=== PATIENT | female | born 1940 | race Caucasian/White ===

== ENCOUNTER 2019-01-04 21:24 | Emergency (ER) | payer MEDICARE, BC ==
--- NOTE | 2019-01-04 22:29 | EDM.PDOC ---
ED HPI GENERAL MEDICAL PROBLEM - General Time Seen by Provider: 01/04/19 21:24 Source of Information: Reports: Patient, Family History Limitations: Reports: No Limitations - History of Present Illness INITIAL COMMENTS - FREE TEXT/NARRATIVE: 78 y.o.w.f with a H/O UC came to the ed because abd. pain. Pt had a "good BM" this morning. At about 10 am, pt noticed pain ant her abdomen. Pt was seen by her PMD who prescribed her Levofloxacin for her Pneumonia. No trauma, no N/V. Last food intake this am. No blood in stool, no N/V or any other acute med issues. BP 136/63 RR 18 Pulse ox 98% on RA Temp 36.8 Onset Date: 01/04/19 Onset Time: 09:00 Duration: Hour(s):, Intermittent Location: Reports: Abdomen (gen abdomen) Quality: Reports: Dull Severity: Mild Improves with: Reports: Other Worsens with: Reports: Other Context: Reports: Other Associated Symptoms: Reports: No Other Symptoms abd Pain Score (Numeric/FACES): 10 - Related Data Allergies Allergy/AdvReac Type Severity Reaction Status Date / Time Penicillins Allergy Severe Shortness Verified 01/04/19 21:36 of Breath aspirin Allergy Shortness Verified 01/04/19 21:36 of Breath Home Meds: Home Meds Albuterol [Proventil Neb Soln] 1 ampule INH QID PRN 04/06/18 [History] Albuterol [Ventolin HFA] 2 inhalation INH QID PRN 04/06/18 [History] Budesonide/Formoterol [Symbicort 160-4.5 MCG] 2 inh INH BID 04/06/18 [History] Montelukast [Singulair] 10 mg PO DAILY 04/06/18 [History] levETIRAcetam [Levetiracetam] 250 mg PO DAILY 04/06/18 [History] Gabapentin [Neurontin] 100 mg PO DAILY 01/04/19 [History] Levofloxacin 500 mg PO DAILY 01/04/19 [History] dexAMETHasone [Dexamethasone] 2 mg PO BID 01/04/19 [History] fentaNYL [Duragesic] 12 mcg TOP ASDIRECTED 01/04/19 [History] oxyCODONE 5 mg PO Q4HR PRN 01/04/19 [History] Past Medical History HEENT History: Reports: Impaired Vision Respiratory History: Reports: Asthma, SOB Neurological History: Reports: Seizure - Past Surgical History HEENT Surgical History: Reports: None GI Surgical History: Reports: Colostomy Neurological Surgical History: Reports: None Social & Family History - Family History Family Medical History: Noncontributory - Caffeine Use Caffeine Use: Reports: Coffee ED ROS GENERAL - Review of Systems Review Of Systems: See Below Constitutional: Reports: No Symptoms HEENT: Reports: No Symptoms Respiratory: Reports: No Symptoms Cardiovascular: Reports: No Symptoms Endocrine: Reports: No Symptoms GI/Abdominal: Reports: Abdominal Pain (generalized) : Reports: No Symptoms Musculoskeletal: Reports: No Symptoms Skin: Reports: No Symptoms Neurological: Reports: No Symptoms Psychiatric: Reports: No Symptoms Hematologic/Lymphatic: Reports: No Symptoms ED EXAM, GI/ABD - Physical Exam Exam: See Below Exam Limited By: No Limitations General Appearance: Alert, WD/WN, Mild Distress Eyes: Bilateral: Normal Appearance Ears: Normal External Exam Nose: Normal Inspection Throat/Mouth: Normal Inspection Head: Atraumatic Neck: Normal Inspection Respiratory/Chest: No Respiratory Distress Cardiovascular: Normal Peripheral Pulses GI/Abdominal Exam: Tender (general tenderness. Colostomy bag has no stool ) (Female) Exam: Deferred Rectal (Female) Exam: Deferred Back Exam: Normal Inspection Extremities: Normal Inspection, Normal Range of Motion Neurological: Alert, Oriented, CN II-XII Intact, Normal Cognition, Normal Gait Psychiatric: Normal Affect, Normal Mood Skin Exam: Warm, Dry, Intact, Normal Color, No Rash Lymphatic: No Adenopathy Course - Vital Signs Text/Narrative:: 78 y.o.w.f with a H/O UC came to the ed because abd. pain. Pt had a "good BM" this morning. At about 10 am, pt noticed pain ant her abdomen. Pt was seen by her PMD who prescribed her Levofloxacin for her Pneumonia. No trauma, no N/V. Last food intake this am. No blood in stool, no N/V or any other acute med issues. BP 136/63 RR 18 Pulse ox 98% on RA Temp 36.8 PE: WNWD W F with a colostomy bag in place. Imaging: Abd flat upright: NAD as per RAD Labs: CBC and BMP nl Impression: Abd. pain, cause not determined. Tx: Prune choose Reexam: Pt passed stool and felt better, requesting to be discharged. Plan: D/C with instructions Last Recorded V/S: Last Vital Signs Temp 36.6 C 01/04/19 21:24 Pulse 90 01/04/19 23:08 Resp 18 01/04/19 23:08 BP 141/75 H 01/04/19 23:08 Pulse Ox 99 01/04/19 23:08 - Orders/Labs/Meds Orders: Active Orders 24 hr Category Date Time Status Abdomen 2V AP Flat Upright [CR] Stat Exams 01/04/19 21:46 Taken CULTURE URINE [RM] Stat Lab 01/04/19 22:22 Received Labs: Laboratory Tests 01/04/19 01/04/19 01/04/19 Range/Units 21:52 21:52 22:22 WBC 8.7 (4.5-12.0) X10-3/uL RBC 4.81 (3.23-5.20) x10(6)uL Hgb 14.5 (11.5-15.5) g/dL Hct 43.3 (30.0-51.3) % MCV 90.0 (80-96) fL MCH 30.2 (27.7-33.6) pg MCHC 33.5 (32.2-35.4) g/dL RDW 13.6 (11.5-15.5) % Plt Count 215 (125-369) X10(3)uL MPV 6.8 L (7.4-10.4) fL Neut % (Auto) 73.2 (46-82) % Lymph % (Auto) 19.7 (13-37) % [place] % (Auto) 6.8 (4-12) % Eos % (Auto) 0 L (1.0-5.0) % Baso % (Auto) 0 (0-2) % Neut # (Auto) 6.4 (1.6-8.3) # Lymph # (Auto) 1.7 (0.6-5.0) # [place] # (Auto) 0.6 (0.0-1.3) # Eos # (Auto) 0.0 (0.0-0.8) # Baso # (Auto) 0.0 (0.0-0.2) # Sodium 140 (135-145) mmol/L Potassium 3.8 (3.5-5.3) mmol/L Chloride 103 (100-110) mmol/L Carbon Dioxide 28 (21-32) mmol/L BUN 12 (7-18) mg/dL Creatinine 0.9 (0.55-1.02) mg/dL Est Cr Clr Drug Dosing 39.43 mL/min Estimated GFR (MDRD) > 60 (>60) BUN/Creatinine Ratio 13.3 (9-20) Glucose 101 (80-116) mg/dL Calcium 9.4 (8.6-10.2) mg/dL Urine Color Yellow (YELLOW) Urine Appearance Clear (CLEAR) Urine pH 6.0 (5.0-6.5) Ur Specific [place] 1.015 (1.010-1.025) Urine Protein Negative (NEGATIVE) mg/dL Urine Glucose (UA) Normal (NORMAL) mg/dL Urine Ketones Negative (NEGATIVE) mg/dL Urine Occult Blood Negative (NEGATIVE) Urine Nitrite Negative (NEGATIVE) Urine Bilirubin Negative (NEGATIVE) Urine Urobilinogen Normal (NEGATIVE) mg/dL Ur Leukocyte Esterase Small H (NEGATIVE) Urine RBC 0-5 (0-5) Urine WBC 5-10 H (0-5) Ur Squamous Epith Cells Few H (NS,R,O) Urine Bacteria Few H (NS) Urine Mucus Few H (NS) Departure - Departure Time of Disposition: 23:10 Disposition: Home, Self-Care 01 Condition: Good Clinical Impression: Abdominal pain in female, UTI (urinary tract infection) - Discharge Information Instructions: Abdominal Pain, Adult Referrals: Akil Wallis MD [Primary Care Provider] - Forms: ED Department Discharge Additional Instructions: please take tylenol for pain, cont you current meds. please f/u with your PMD, come back if your symptoms get worse acutely - My Orders Last 24 Hours: My Active Orders 01/04/19 21:46 Abdomen 2V AP Flat Upright [CR] Stat 01/04/19 22:22 CULTURE URINE [RM] Stat - Assessment/Plan Last 24 Hours: My Active Orders 01/04/19 21:46 Abdomen 2V AP Flat Upright [CR] Stat 01/04/19 22:22 CULTURE URINE [RM] Stat
== END 2019-01-04 23:18 | disposition home or self-care (01) ==
LOC: FB.ED 21:24
DX: N39.0 Urinary tract infection, site not specified (principal); J45.909 Unspecified asthma, uncomplicated; Z88.0 Allergy status to penicillin; Z88.8 Allergy status to other drugs, medicaments and biological substances; Z79.899 Other long term (current) drug therapy
CPT/HCPCS: 36415; 74019; 80048; 81001; 85025; 87086; 99282; 99283-25

== ENCOUNTER 2021-03-15 11:13 | Observation (INO) | payer MEDICARE, BC ==
[2021-03-15] MEDS ORDERED: Sodium Chloride 0.9% 10 ML Syringe FLUSH PRN (11:46)
[2021-03-15] MEDS ORDERED: Sodium Chloride 0.9% 1,000 ML IV SCH (12:00)
--- NOTE | 2021-03-15 12:38 | EDM.PDOC ---
ED HPI GENERAL MEDICAL PROBLEM - General Chief Complaint: General Stated Complaint: WEAKNESS Time Seen by Provider: 03/15/21 11:25 Source of Information: Reports: Patient History Limitations: Reports: No Limitations - History of Present Illness INITIAL COMMENTS - FREE TEXT/NARRATIVE: Patient presented to the ED because of her stoma licking and just want it to be checked. It looks raw but is not tender, no pus discharge, There is no abdominal pain, nausea, vomiting. She however feels weak or her legs.Her stool is usually soft due to her ulcerative colitis. Denies having any urinary symptoms. general Pain Score (Numeric/FACES): 3 - Related Data Allergies Allergy/AdvReac Type Severity Reaction Status Date / Time Penicillins Allergy Severe Shortness Verified 03/15/21 11:55 of Breath aspirin Allergy Shortness Verified 03/15/21 11:55 of Breath carbamazepine Allergy Cannot Verified 03/15/21 13:19 Remember cephalexin [From Keflex] Allergy Wheezing Verified 03/15/21 13:19 doxycycline Allergy Hives Verified 03/15/21 13:19 erythromycin base Allergy Hives Verified 03/15/21 13:19 ibuprofen Allergy Difficulty Verified 03/15/21 13:19 Breathing latex Allergy Hives Verified 03/15/21 13:19 naproxen [From Naprosyn] Allergy Wheezing Verified 03/15/21 13:19 oxcarbazepine Allergy Hives Verified 03/15/21 13:19 Sulfa (Sulfonamide Allergy Wheezing Verified 03/15/21 13:19 Antibiotics) chocolate Allergy Other Uncoded 03/15/21 13:19 coffee flavor Allergy Other Uncoded 03/15/21 13:19 audrey canina extract (fruit c) Allergy Shortness Uncoded 03/15/21 13:19 of Breath Home Meds: Home Meds Albuterol [Proventil Neb Soln] 1 ampule INH QID PRN 04/06/18 [History] Albuterol [Ventolin HFA] 2 puff INH QID PRN 04/06/18 [History] Montelukast [Singulair] 10 mg PO DAILY 04/06/18 [History] levETIRAcetam [Levetiracetam] 250 mg PO BID 04/06/18 [History] Acetaminophen [Tylenol Arthritis] 650 mg PO ASDIRECTED PRN 03/15/21 [History] Beta-Carotene(A) w/C & E/Min [Prosight] 1 tab PO DAILY 03/15/21 [History] Budesonide/Formoterol [Symbicort 160-4.5 MCG] 1 - 2 puff INH BID 03/15/21 [History] Calcium Carbonate/Vitamin D3 [Calcium 600-Vit D3 200 Tablet] 1 tab PO BIDMEALS 03/15/21 [History] Cholecalciferol (Vitamin D3) [Vitamin D3] 400 unit PO BID 03/15/21 [History] Cyanocobalamin (Vitamin B12) [Vitamin B12] 1 tab PO DAILY 03/15/21 [History] Magnesium Gluconate 500 mg PO DAILY 03/15/21 [History] Multivitamin 1 tab PO DAILY 03/15/21 [History] Past Medical History HEENT History: Reports: Impaired Vision Respiratory History: Reports: Asthma, SOB Gastrointestinal History: Reports: Other (See Below) Other Gastrointestinal History: ulcertive colitis, ileostomy placed in the "80's" Neurological History: Reports: Seizure - Past Surgical History HEENT Surgical History: Reports: None GI Surgical History: Reports: Colostomy Neurological Surgical History: Reports: None Social & Family History - Family History Family Medical History: No Pertinent Family History - Caffeine Use Caffeine Use: Reports: Coffee ED ROS GENERAL - Review of Systems Review Of Systems: See Below Constitutional: Reports: No Symptoms HEENT: Reports: No Symptoms Respiratory: Reports: No Symptoms Cardiovascular: Reports: No Symptoms Endocrine: Reports: No Symptoms GI/Abdominal: Reports: No Symptoms : Reports: No Symptoms Musculoskeletal: Reports: No Symptoms Neurological: Reports: No Symptoms Psychiatric: Reports: No Symptoms ED EXAM, GENERAL - Physical Exam Exam: See Below Exam Limited By: No Limitations General Appearance: Alert, No Apparent Distress Eye Exam: Bilateral Eye: PERRL Ears: Normal External Exam, Normal Canal Nose: Normal Inspection, Normal Mucosa, No Blood Throat/Mouth: Normal Inspection, Normal Lips, Normal Teeth Head: Atraumatic, Normocephalic Neck: Normal Inspection, Supple, Non-Tender, Full Range of Motion Respiratory/Chest: No Respiratory Distress, Lungs Clear, Normal Breath Sounds, No Accessory Muscle Use, Chest Non-Tender Cardiovascular: Normal Peripheral Pulses, Regular Rate, Rhythm, No Edema, No Gallop, No JVD, No Murmur, No Rub GI/Abdominal: Normal Bowel Sounds, Soft, Non-Tender, No Organomegaly, No Distention, No Abnormal Bruit, No Mass, Other (stoma in place and doesn't look infected) Back Exam: Normal Inspection, Full Range of Motion Extremities: Normal Inspection, Normal Range of Motion, Non-Tender, No Pedal Edema, Normal Capillary Refill Neurological: Alert, Oriented, CN II-XII Intact, Normal Cognition, Normal Gait, Normal Reflexes, No Motor/Sensory Deficits #1 Interpretation EKG Date: 03/15/21 Time: 12:03 Rhythm: NSR Rate (Beats/Min): 82 [place]: LAD-Left [place] Deviation P-Wave: Present QRS: Normal ST-T: Normal QT: Normal LA/PQ Interval: 186 Comparison: NA - No Prior EKG EKG Interpretation Comments: NSR LAE LAD Course - Vital Signs Text/Narrative:: Lab/EKG/CXR result was reviewed and discussed with patient NS 1 L bolus NS @ 100 ml/hr Last Recorded V/S: Last Vital Signs Temp 36.6 C 03/15/21 11:20 Pulse 81 03/15/21 14:28 Resp 16 03/15/21 14:28 BP 122/55 L 03/15/21 14:00 Pulse Ox 96 03/15/21 14:28 - Orders/Labs/Meds Orders: Active Orders 24 hr Category Date Time Status Patient Status [ADT] Routine ADT 03/15/21 14:53 Active Antiembolic Devices [RC] .Routine Care 03/15/21 14:54 Active Intake and Output [RC] QSHIFT Care 03/15/21 14:54 Active Oxygen Therapy [RC] PRN Care 03/15/21 14:54 Active Pulse Oximetry [RC] PRN Care 03/15/21 14:53 Active Up With Assistance [RC] ASDIRECTED Care 03/15/21 14:52 Active VTE/DVT Education [RC] Click to Edit Care 03/15/21 14:54 Active Vital Signs [RC] Q4H Care 03/15/21 14:53 Active Regular Diet [DIET] Diet 03/15/21 Dinner Ordered Chest 1V Frontal [CR] Stat Exams 03/15/21 11:43 Taken BASIC METABOLIC PANEL,BMP [CHEM] AM Lab 03/16/21 05:11 Ordered CBC WITH AUTO DIFF [HEME] AM Lab 03/16/21 05:11 Ordered CORONAVIRUS COVID-19 ERNIE [MOLEC] Stat Lab 03/15/21 14:45 Received TROPONIN I [CHEM] Stat Lab 03/15/21 20:00 Ordered Ondansetron [Zofran] Med 03/15/21 15:00 Active 4 mg IVPUSH Q4H PRN Sodium Chloride 0.9% [Normal Saline] 1,000 ml Med 03/15/21 12:00 Active IV ASDIRECTED Sodium Chloride 0.9% [Normal Saline] 1,000 ml Med 03/15/21 15:00 Active IV ASDIRECTED Sodium Chloride 0.9% [Saline Flush] Med 03/15/21 11:46 Active 10 ml FLUSH ASDIRECTED PRN DVT/VTE Prophylaxis Reflex [OM.PC] Per Unit Routine Oth 03/15/21 14:53 Ordered Saline Lock Insert [OM.PC] Routine Oth 03/15/21 11:46 Ordered Sequential Compression Device [OM.PC] Routine Oth 03/15/21 14:52 Ordered Resuscitation Status Routine Resus Stat 03/15/21 14:52 Ordered EKG 12 Lead [EK] Routine Ther 03/15/21 11:43 Ordered Medication Orders Acetaminophen (Acetaminophen 650 Mg Tab.Er) 650 mg PO ASDIRECTED PRN PRN Reason: Headache Albuterol (Albuterol 8 Gm Inhaler) gm INH QID PRN PRN Reason: Dyspnea Enoxaparin Sodium (Enoxaparin 60 Mg/0.6 Ml Syringe) 60 mg SUBCUT Q24H LAMIN Sodium Chloride (Normal Saline) 1,000 mls @ 500 mls/hr IV ASDIRECTED [facility] Last Admin: 03/15/21 12:19 Dose: 500 mls/hr Documented by: FRIEAUG Sodium Chloride (Normal Saline) 1,000 mls @ 100 mls/hr IV ASDIRECTED [facility] Levetiracetam (Levetiracetam 250 Mg Tab) 250 mg PO BID [facility] Montelukast Sodium (Montelukast 10 Mg Tab) 10 mg PO DAILY [facility] Multivitamins/Minerals (Beta-Carotene (Vitamin A) W/Vitamin C & E Plus Minerals Tab) 1 tab PO DAILY [facility] Non-Formulary Medication (Albuterol [Proventil Neb Soln]) 1 ampule INH QID PRN PRN Reason: Dyspnea Non-Formulary Medication (Budesonide/Formoterol [Symbicort 160-4.5 Mcg]) 1 puff INH BID LAMIN Non-Formulary Medication (Calcium Carbonate/Vitamin D3 [Calcium 600-Vit D3 200 Tablet]) 1 tab PO BIDMEALS LAMIN Non-Formulary Medication (Cholecalciferol (Vitamin D3) [Vitamin D3]) 400 unit PO BID LAMIN Non-Formulary Medication (Magnesium Gluconate [Magnesium Gluconate]) 500 mg PO DAILY [facility]IN Non-Formulary Medication (Multivitamin [Multivitamin]) 1 tab PO DAILY [facility] Ondansetron HCl (Ondansetron 4 Mg/2 Ml Sdv) 4 mg IVPUSH Q4H PRN PRN Reason: nausea/vomiting Sodium Chloride (Sodium Chloride 0.9% 10 Ml Syringe) 10 ml FLUSH ASDIRECTED PRN PRN Reason: Keep Vein Open Last Admin: 03/15/21 12:19 Dose: 10 ml Documented by: FERN Labs: Laboratory Tests 03/15/21 03/15/21 03/15/21 Range/Units 12:13 12:13 12:13 WBC 9.7 (3.0-10.3) x10-3/uL RBC 4.63 (3.60-5.20) x10(6)uL Hgb 14.6 (11.4-15.5) g/dL Hct 43.0 (34.2-48.2) % MCV 92.8 (76.7-100.5) fL MCH 31.6 (23.9-33.9) pg MCHC 34.0 (31.9-34.8) g/dL RDW 13.0 (12.3-16.5) % Plt Count 213 (151-488) x10(3)uL MPV 7.5 (7.1-12.4) fL Neut % (Auto) 81.9 H (30.8-76.2) % Lymph % (Auto) 11.0 L (18.4-52.1) % [place] % (Auto) 6.3 (4.4-15.7) % Eos % (Auto) 0.5 L (0.6-8.1) % Baso % (Auto) 0.3 (0.2-1.5) % Neut # (Auto) 7.9 H (1.5-6.3) x10-3/uL Lymph # (Auto) 1.1 (1.0-4.4) x10-3/uL [place] # (Auto) 0.6 (0.3-1.0) x10-3/uL Eos # (Auto) 0.1 (0.0-0.8) x10-3/uL Baso # (Auto) 0.0 (0.0-0.1) x10-3/uL Sodium 143 (135-145) mmol/L Potassium 3.9 (3.5-5.3) mmol/L Chloride 104 (100-110) mmol/L Carbon Dioxide 29 (21-32) mmol/L BUN 21 H (7-18) mg/dL Creatinine 0.9 (0.55-1.02) mg/dL Est Cr Clr Drug Dosing TNP Estimated GFR (MDRD) 60 (>60) BUN/Creatinine Ratio 23.3 H (9-20) Glucose 106 (80-116) mg/dL Calcium 9.8 (8.6-10.2) mg/dL Total Bilirubin 1.0 (0.1-1.3) mg/dL AST 34 H (5-25) IU/L ALT 28 (12-36) U/L Alkaline Phosphatase 64 (56-112) IU/L Troponin I 135.8 H* (4.0-60.3) pg/mL NT-Pro-B Natriuret Pep (<=450) pg/mL Total Protein 7.6 (6.0-8.0) g/dL Albumin 4.1 (3.2-4.6) g/dL Globulin 3.5 g/dL Albumin/Globulin Ratio 1.2 Urine Color (YELLOW) Urine Appearance (CLEAR) Urine pH (5.0-6.5) Ur Specific [place] (1.010-1.025) Urine Protein (NEGATIVE) mg/dL Urine Glucose (UA) (NORMAL) mg/dL Urine Ketones (NEGATIVE) mg/dL Urine Occult Blood (NEGATIVE) Urine Nitrite (NEGATIVE) Urine Bilirubin (NEGATIVE) Urine Urobilinogen (NEGATIVE) mg/dL Ur Leukocyte Esterase (NEGATIVE) Urine RBC (0-5) Urine WBC (0-5) Ur Squamous Epith Cells (NS,R,O) Urine Bacteria (NS) 03/15/21 03/15/21 Range/Units 14:00 14:15 WBC (3.0-10.3) x10-3/uL RBC (3.60-5.20) x10(6)uL Hgb (11.4-15.5) g/dL Hct (34.2-48.2) % MCV (76.7-100.5) fL MCH (23.9-33.9) pg MCHC (31.9-34.8) g/dL RDW (12.3-16.5) % Plt Count (151-488) x10(3)uL MPV (7.1-12.4) fL Neut % (Auto) (30.8-76.2) % Lymph % (Auto) (18.4-52.1) % [place] % (Auto) (4.4-15.7) % Eos % (Auto) (0.6-8.1) % Baso % (Auto) (0.2-1.5) % Neut # (Auto) (1.5-6.3) x10-3/uL Lymph # (Auto) (1.0-4.4) x10-3/uL [place] # (Auto) (0.3-1.0) x10-3/uL Eos # (Auto) (0.0-0.8) x10-3/uL Baso # (Auto) (0.0-0.1) x10-3/uL Sodium (135-145) mmol/L Potassium (3.5-5.3) mmol/L Chloride (100-110) mmol/L Carbon Dioxide (21-32) mmol/L BUN (7-18) mg/dL Creatinine (0.55-1.02) mg/dL Est Cr Clr Drug Dosing Estimated GFR (MDRD) (>60) BUN/Creatinine Ratio (9-20) Glucose (80-116) mg/dL Calcium (8.6-10.2) mg/dL Total Bilirubin (0.1-1.3) mg/dL AST (5-25) IU/L ALT (12-36) U/L Alkaline Phosphatase (56-112) IU/L Troponin I 117.5 H* (4.0-60.3) pg/mL NT-Pro-B Natriuret Pep 185 (<=450) pg/mL Total Protein (6.0-8.0) g/dL Albumin (3.2-4.6) g/dL Globulin g/dL Albumin/Globulin Ratio Urine Color Yellow (YELLOW) Urine Appearance Clear (CLEAR) Urine pH 5.0 (5.0-6.5) Ur Specific [place] 1.020 (1.010-1.025) Urine Protein Negative (NEGATIVE) mg/dL Urine Glucose (UA) Normal (NORMAL) mg/dL Urine Ketones 15 H (NEGATIVE) mg/dL Urine Occult Blood Negative (NEGATIVE) Urine Nitrite Negative (NEGATIVE) Urine Bilirubin Negative (NEGATIVE) Urine Urobilinogen Normal (NEGATIVE) mg/dL Ur Leukocyte Esterase Negative (NEGATIVE) Urine RBC 0-5 (0-5) Urine WBC 0-5 (0-5) Ur Squamous Epith Cells Occasional (NS,R,O) Urine Bacteria Few H (NS) Meds: Medications Generic Name Dose Route Start Last Admin Trade Name Freq PRN Reason Stop Dose Admin Acetaminophen 650 mg 03/15/21 15:01 Acetaminophen 650 Mg Tab.Er PO ASDIRECTED PRN Headache Albuterol gm 03/15/21 15:01 Albuterol 8 Gm Inhaler INH QID PRN Dyspnea Enoxaparin Sodium 60 mg 03/15/21 15:45 Enoxaparin 60 Mg/0.6 Ml Syringe SUBCUT Q24H LAMIN Sodium Chloride 1,000 mls @ 500 mls/hr 03/15/21 12:00 03/15/21 12:19 Normal Saline IV 500 mls/hr ASDIRECTED LAMIN Administration Sodium Chloride 1,000 mls @ 100 mls/hr 03/15/21 15:00 Normal Saline IV ASDIRECTED LAMIN Levetiracetam 250 mg 03/15/21 21:00 Levetiracetam 250 Mg Tab PO BID LAMIN Montelukast Sodium 10 mg 03/16/21 09:00 Montelukast 10 Mg Tab PO DAILY [facility] Multivitamins/Minerals 1 tab 03/16/21 09:00 Beta-Carotene (Vitamin A) W/Vitamin C & E Plus Minerals Tab PO DAILY [facility] Non-Formulary Medication 1 ampule 03/15/21 15:01 Albuterol [Proventil Neb Soln] INH QID PRN Dyspnea Non-Formulary Medication 1 puff 03/15/21 21:00 Budesonide/Formoterol [Symbicort 160-4.5 Mcg] INH BID [facility]IN Non-Formulary Medication 1 tab 03/15/21 18:00 Calcium Carbonate/Vitamin D3 [Calcium 600-Vit D3 200 Tablet] PO BIDMEALS LAMIN Non-Formulary Medication 400 unit 03/15/21 21:00 Cholecalciferol (Vitamin D3) [Vitamin D3] PO BID [facility]AMIN Non-Formulary Medication 500 mg 03/16/21 09:00 Magnesium Gluconate [Magnesium Gluconate] PO DAILY [facility] Non-Formulary Medication 1 tab 03/16/21 09:00 Multivitamin [Multivitamin] PO DAILY [facility] Ondansetron HCl 4 mg 03/15/21 15:00 Ondansetron 4 Mg/2 Ml Sdv IVPUSH Q4H PRN nausea/vomiting Sodium Chloride 10 ml 03/15/21 11:46 03/15/21 12:19 Sodium Chloride 0.9% 10 Ml Syringe FLUSH 10 ml ASDIRECTED PRN Administration Keep Vein Open Departure - Departure Time of Disposition: 14:00 Disposition: Refer to Observation Condition: Good Clinical Impression: Weakness, Dehydration, Ulcerative colitis Fall Qualifiers: Encounter type: initial encounter Qualified Code(s): W19.XXXA - Unspecified fall, initial encounter - Discharge Information Sepsis Event Note (ED) - Focused Exam Vital Signs: Vital Signs Temp Pulse Resp BP Pulse Ox 03/15/21 14:28 81 16 96 03/15/21 14:00 78 16 122/55 L 97 03/15/21 13:00 78 16 95 03/15/21 12:21 73 16 127/62 94 L 03/15/21 11:20 36.6 C 74 16 124/60 96 - My Orders Last 24 Hours: My Active Orders 03/15/21 11:43 Chest 1V Frontal [CR] Stat EKG 12 Lead [EK] Routine 03/15/21 11:46 Sodium Chloride 0.9% [Saline Flush] 10 ml FLUSH ASDIRECTED PRN Saline Lock Insert [OM.PC] Routine 03/15/21 12:00 Sodium Chloride 0.9% [Normal Saline] 1,000 ml IV ASDIRECTED 03/15/21 14:45 CORONAVIRUS COVID-19 ERNIE [MOLEC] Stat 03/15/21 14:52 Up With Assistance [RC] ASDIRECTED Sequential Compression Device [OM.PC] Routine Resuscitation Status Routine 03/15/21 14:53 Patient Status [ADT] Routine Pulse Oximetry [RC] PRN Vital Signs [RC] Q4H DVT/VTE Prophylaxis Reflex [OM.PC] Per Unit Routine 03/15/21 14:54 Antiembolic Devices [RC] .Routine Intake and Output [RC] QSHIFT Oxygen Therapy [RC] PRN VTE/DVT Education [RC] Click to Edit 03/15/21 15:00 Ondansetron [Zofran] 4 mg IVPUSH Q4H PRN Sodium Chloride 0.9% [Normal Saline] 1,000 ml IV ASDIRECTED 03/15/21 Dinner Regular Diet [DIET] 03/15/21 20:00 TROPONIN I [CHEM] Stat 03/16/21 05:11 BASIC METABOLIC PANEL,BMP [CHEM] AM CBC WITH AUTO DIFF [HEME] AM - Assessment/Plan Last 24 Hours: My Active Orders 03/15/21 11:43 Chest 1V Frontal [CR] Stat EKG 12 Lead [EK] Routine 03/15/21 11:46 Sodium Chloride 0.9% [Saline Flush] 10 ml FLUSH ASDIRECTED PRN Saline Lock Insert [OM.PC] Routine 03/15/21 12:00 Sodium Chloride 0.9% [Normal Saline] 1,000 ml IV ASDIRECTED 03/15/21 14:45 CORONAVIRUS COVID-19 ERNIE [MOLEC] Stat 03/15/21 14:52 Up With Assistance [RC] ASDIRECTED Sequential Compression Device [OM.PC] Routine Resuscitation Status Routine 03/15/21 14:53 Patient Status [ADT] Routine Pulse Oximetry [RC] PRN Vital Signs [RC] Q4H DVT/VTE Prophylaxis Reflex [OM.PC] Per Unit Routine 03/15/21 14:54 Antiembolic Devices [RC] .Routine Intake and Output [RC] QSHIFT Oxygen Therapy [RC] PRN VTE/DVT Education [RC] Click to Edit 03/15/21 15:00 Ondansetron [Zofran] 4 mg IVPUSH Q4H PRN Sodium Chloride 0.9% [Normal Saline] 1,000 ml IV ASDIRECTED 03/15/21 Dinner Regular Diet [DIET] 03/15/21 20:00 TROPONIN I [CHEM] Stat 03/16/21 05:11 BASIC METABOLIC PANEL,BMP [CHEM] AM CBC WITH AUTO DIFF [HEME] AM
[2021-03-15] MEDS ORDERED: Ondansetron 4 MG/2 ML SDV IVPUSH PRN (15:00)
[2021-03-15] MEDS ORDERED: Albuterol 8 GM Inhaler INH PRN (15:01)
[2021-03-15] MEDS: Sodium Chloride 0.9% 1,000 ML IV SCH (15:35)
[2021-03-15] MEDS ORDERED: Enoxaparin 60 MG/0.6 ML Syringe SUBCUT ONE (16:00)
--- NOTE | 2021-03-15 17:19 | PCM.HP.2 ---
H&P History of Present Illness - General Date of Service: 03/15/21 Admit Problem/Dx: Admission Diagnosis/Problem Admission Diagnosis/Problem Weakness Source of Information: Patient, Old Records, Provider, RN History Limitations: Reports: No Limitations - History of Present Illness Initial Comments - Free Text/Narative: Aguilar an 80-year-old female admitted from home, due to generalized weakness. She initially presented to the ED for an ileostomy checked because of leakage. While in the ED, she complained of generalized weakness over the last 2 weeks along with the shortness of breath from asthma. She has fatigue, and difficulty walking/ambulation.Denies any chest pain. She is fully immunized against COVID- 19. Her past history is consistent with history of ulcerative colitis, asthma, and chronic daily headaches.She lives alone. general Pain Score (Numeric/FACES): 3 rectum Pain Score (Numeric/FACES): 5 - Related Data Allergies/Adverse Reactions: Allergies Allergy/AdvReac Type Severity Reaction Status Date / Time Penicillins Allergy Severe Shortness Verified 03/15/21 11:55 of Breath aspirin Allergy Shortness Verified 03/15/21 11:55 of Breath carbamazepine Allergy Cannot Verified 03/15/21 13:19 Remember cephalexin [From Keflex] Allergy Wheezing Verified 03/15/21 13:19 doxycycline Allergy Hives Verified 03/15/21 13:19 erythromycin base Allergy Hives Verified 03/15/21 13:19 ibuprofen Allergy Difficulty Verified 03/15/21 13:19 Breathing latex Allergy Hives Verified 03/15/21 13:19 naproxen [From Naprosyn] Allergy Wheezing Verified 03/15/21 13:19 oxcarbazepine Allergy Hives Verified 03/15/21 13:19 Sulfa (Sulfonamide Allergy Wheezing Verified 03/15/21 13:19 Antibiotics) chocolate Allergy Other Uncoded 03/15/21 13:19 coffee flavor Allergy Other Uncoded 03/15/21 13:19 audrey canina extract (fruit c) Allergy Shortness Uncoded 03/15/21 13:19 of Breath Home Medications: Home Meds Albuterol [Proventil Neb Soln] 1 ampule INH QID PRN 04/06/18 [History] Albuterol [Ventolin HFA] 2 puff INH QID PRN 04/06/18 [History] Montelukast [Singulair] 10 mg PO DAILY 04/06/18 [History] levETIRAcetam [Levetiracetam] 250 mg PO BID 04/06/18 [History] Acetaminophen [Tylenol Arthritis] 650 mg PO ASDIRECTED PRN 03/15/21 [History] Beta-Carotene(A) w/C & E/Min [Prosight] 1 tab PO DAILY 03/15/21 [History] Budesonide/Formoterol [Symbicort 160-4.5 MCG] 1 - 2 puff INH BID 03/15/21 [History] Calcium Carbonate/Vitamin D3 [Calcium 600-Vit D3 200 Tablet] 1 tab PO BIDMEALS 03/15/21 [History] Cholecalciferol (Vitamin D3) [Vitamin D3] 400 unit PO BID 03/15/21 [History] Cyanocobalamin (Vitamin B12) [Vitamin B12] 1 tab PO DAILY 03/15/21 [History] Magnesium Gluconate 500 mg PO DAILY 03/15/21 [History] Multivitamin 1 tab PO DAILY 03/15/21 [History] Past Medical History HEENT History: Reports: Cataract, Glaucoma, Impaired Vision, Other (See Below) Other HEENT History: hypermetropia, macular druse, presbyopia, stigmatism both eyes. Cardiovascular History: Reports: Other (See Below) Other Cardiovascular History: varicose veins Respiratory History: Reports: Asthma, SOB Gastrointestinal History: Reports: Other (See Below) Other Gastrointestinal History: ulcertive colitis, ileostomy placed in the "80's" Genitourinary History: Reports: UTI, Recurrent PIGMENT PRESSER History: Reports: Musculoskeletal History: Reports: Arthritis, Back Pain, Chronic, Osteoporosis, Other (See Below) Other Musculoskeletal History: lumbago, congenital spondylolisthesis Neurological History: Reports: Seizure, Other (See Below) Other Neuro History: general convulsive epilepsy Psychiatric History: Reports: None Endocrine/Metabolic History: Reports: None Hematologic History: Reports: None Immunologic History: Reports: None Oncologic (Cancer) History: Reports: None Dermatologic History: Reports: None - Infectious Disease History Infectious Disease History: Reports: None - Past Surgical History HEENT Surgical History: Reports: None Cardiovascular Surgical History: Reports: Varicose Respiratory Surgical History: Reports: None GI Surgical History: Reports: Appendectomy, Cholecystectomy, Colon, Colonoscopy, Other (See Below) Other GI Surgeries/Procedures: total colectomy Female Surgical History: Reports: None Endocrine Surgical History: Reports: None Neurological Surgical History: Reports: None Musculoskeletal Surgical History: Reports: Other (See Below) Other Musculoskeletal Surgeries/Procedures:: arthrodesis post interbody laminectomy and/or diskectomy, spine Social & Family History - Family History Family Medical History: No Pertinent Family History - Tobacco Use Tobacco Use Status *Q: Never Tobacco User Second Hand Smoke Exposure: No - Caffeine Use Caffeine Use: Reports: Soda, Tea - Recreational Drug Use Recreational Drug Use: No H&P Review of Systems - Review of Systems: Review Of Systems: Comprehensive ROS is negative, except as noted in HPI. Exam - Exam Exam: See Below - Vital Signs Vital Signs: Last Vital Signs Temp 98.2 F 03/15/21 16:00 Pulse 83 03/15/21 16:00 Resp 16 03/15/21 16:00 BP 139/63 03/15/21 16:00 Pulse Ox 99 03/15/21 16:00 Weight: 60.419 kg - Exam General: Alert, Oriented, 4 HEENT: PERRLA, Hearing Intact, Mucosa Moist & [place], Nares Patent, Normal Nasal Septum, Posterior Pharynx Clear, Conjunctiva Clear, EOMI, EACs Clear, TMs Clear Neck: Supple, Trachea Midline, 2 Lungs: Clear to Auscultation, Normal Respiratory Effort Cardiovascular: Regular Rate, Regular Rhythm GI/Abdominal Exam: Normal Bowel Sounds, Soft, Non-Tender, Other (Ileostomy bag in place) (Female) Exam: Deferred Rectal (Female) Exam: Deferred Back Exam: Normal Inspection, Full Range of Motion, NT Extremities: Normal Inspection, Normal Range of Motion, Non-Tender, No Pedal Edema, Normal Capillary Refill Skin: Warm, Dry, Intact Neurological: Cranial Nerves Intact, Reflexes Equal Bilateral Neuro Extensive - Mental Status: Alert, Oriented x3, Normal Mood/Affect, Normal Cognition Neuro Extensive - Motor, Sensory, Reflexes: CN II-XII Intact, Normal Gait, Normal Reflexes Psychiatric: Alert, Normal Affect, Normal Mood - Patient Data Lab Results Last 24 hrs: Laboratory Results - last 24 hr 03/15/21 03/15/21 03/15/21 Range/Units 12:13 12:13 12:13 WBC 9.7 (3.0-10.3) x10-3/uL RBC 4.63 (3.60-5.20) x10(6)uL Hgb 14.6 (11.4-15.5) g/dL Hct 43.0 (34.2-48.2) % MCV 92.8 (76.7-100.5) fL MCH 31.6 (23.9-33.9) pg MCHC 34.0 (31.9-34.8) g/dL RDW 13.0 (12.3-16.5) % Plt Count 213 (151-488) x10(3)uL MPV 7.5 (7.1-12.4) fL Neut % (Auto) 81.9 H (30.8-76.2) % Lymph % (Auto) 11.0 L (18.4-52.1) % [place] % (Auto) 6.3 (4.4-15.7) % Eos % (Auto) 0.5 L (0.6-8.1) % Baso % (Auto) 0.3 (0.2-1.5) % Neut # (Auto) 7.9 H (1.5-6.3) x10-3/uL Lymph # (Auto) 1.1 (1.0-4.4) x10-3/uL [place] # (Auto) 0.6 (0.3-1.0) x10-3/uL Eos # (Auto) 0.1 (0.0-0.8) x10-3/uL Baso # (Auto) 0.0 (0.0-0.1) x10-3/uL Sodium 143 (135-145) mmol/L Potassium 3.9 (3.5-5.3) mmol/L Chloride 104 (100-110) mmol/L Carbon Dioxide 29 (21-32) mmol/L BUN 21 H (7-18) mg/dL Creatinine 0.9 (0.55-1.02) mg/dL Est Cr Clr Drug Dosing TNP Estimated GFR (MDRD) 60 (>60) BUN/Creatinine Ratio 23.3 H (9-20) Glucose 106 (80-116) mg/dL Calcium 9.8 (8.6-10.2) mg/dL Total Bilirubin 1.0 (0.1-1.3) mg/dL AST 34 H (5-25) IU/L ALT 28 (12-36) U/L Alkaline Phosphatase 64 (56-112) IU/L Troponin I 135.8 H* (4.0-60.3) pg/mL NT-Pro-B Natriuret Pep (<=450) pg/mL Total Protein 7.6 (6.0-8.0) g/dL Albumin 4.1 (3.2-4.6) g/dL Globulin 3.5 g/dL Albumin/Globulin Ratio 1.2 Urine Color (YELLOW) Urine Appearance (CLEAR) Urine pH (5.0-6.5) Ur Specific [place] (1.010-1.025) Urine Protein (NEGATIVE) mg/dL Urine Glucose (UA) (NORMAL) mg/dL Urine Ketones (NEGATIVE) mg/dL Urine Occult Blood (NEGATIVE) Urine Nitrite (NEGATIVE) Urine Bilirubin (NEGATIVE) Urine Urobilinogen (NEGATIVE) mg/dL Ur Leukocyte Esterase (NEGATIVE) Urine RBC (0-5) Urine WBC (0-5) Ur Squamous Epith Cells (NS,R,O) Urine Bacteria (NS) SARS-CoV-2 RNA (ERNIE) (NEGATIVE) 03/15/21 03/15/21 03/15/21 Range/Units 14:00 14:15 14:45 WBC (3.0-10.3) x10-3/uL RBC (3.60-5.20) x10(6)uL Hgb (11.4-15.5) g/dL Hct (34.2-48.2) % MCV (76.7-100.5) fL MCH (23.9-33.9) pg MCHC (31.9-34.8) g/dL RDW (12.3-16.5) % Plt Count (151-488) x10(3)uL MPV (7.1-12.4) fL Neut % (Auto) (30.8-76.2) % Lymph % (Auto) (18.4-52.1) % [place] % (Auto) (4.4-15.7) % Eos % (Auto) (0.6-8.1) % Baso % (Auto) (0.2-1.5) % Neut # (Auto) (1.5-6.3) x10-3/uL Lymph # (Auto) (1.0-4.4) x10-3/uL [place] # (Auto) (0.3-1.0) x10-3/uL Eos # (Auto) (0.0-0.8) x10-3/uL Baso # (Auto) (0.0-0.1) x10-3/uL Sodium (135-145) mmol/L Potassium (3.5-5.3) mmol/L Chloride (100-110) mmol/L Carbon Dioxide (21-32) mmol/L BUN (7-18) mg/dL Creatinine (0.55-1.02) mg/dL Est Cr Clr Drug Dosing Estimated GFR (MDRD) (>60) BUN/Creatinine Ratio (9-20) Glucose (80-116) mg/dL Calcium (8.6-10.2) mg/dL Total Bilirubin (0.1-1.3) mg/dL AST (5-25) IU/L ALT (12-36) U/L Alkaline Phosphatase (56-112) IU/L Troponin I 117.5 H* (4.0-60.3) pg/mL NT-Pro-B Natriuret Pep 185 (<=450) pg/mL Total Protein (6.0-8.0) g/dL Albumin (3.2-4.6) g/dL Globulin g/dL Albumin/Globulin Ratio Urine Color Yellow (YELLOW) Urine Appearance Clear (CLEAR) Urine pH 5.0 (5.0-6.5) Ur Specific [place] 1.020 (1.010-1.025) Urine Protein Negative (NEGATIVE) mg/dL Urine Glucose (UA) Normal (NORMAL) mg/dL Urine Ketones 15 H (NEGATIVE) mg/dL Urine Occult Blood Negative (NEGATIVE) Urine Nitrite Negative (NEGATIVE) Urine Bilirubin Negative (NEGATIVE) Urine Urobilinogen Normal (NEGATIVE) mg/dL Ur Leukocyte Esterase Negative (NEGATIVE) Urine RBC 0-5 (0-5) Urine WBC 0-5 (0-5) Ur Squamous Epith Cells Occasional (NS,R,O) Urine Bacteria Few H (NS) SARS-CoV-2 RNA (ERNIE) Negative (NEGATIVE) Result Diagrams: 03/15/21 12:13 03/15/21 12:13 Mark Anthony Results Last 24 hrs: Microbiology 03/15/21 15:00 Occult Blood - Final Stool / Feces Sepsis Event Note - Evaluation Sepsis Screening Result: No Definite Risk - Focused Exam Vital Signs: Vital Signs Temp Pulse Resp BP Pulse Ox 03/15/21 16:00 98.2 F 83 16 139/63 99 03/15/21 15:00 82 16 126/60 97 03/15/21 14:28 81 16 96 03/15/21 14:00 78 16 122/55 L 97 03/15/21 13:00 78 16 95 03/15/21 12:21 73 16 127/62 94 L 03/15/21 11:20 98 F 74 16 124/60 96 - Problem List (1) Weakness SNOMED Code(s): 67218640 ICD Code: R53.1 - WEAKNESS Status: Acute Current Visit: Yes (2) Mild intermittent asthma SNOMED Code(s): 683474207 ICD Code: J45.20 - MILD INTERMITTENT ASTHMA, UNCOMPLICATED Status: Acute Current Visit: Yes Qualifiers: Asthma complication type: uncomplicated Qualified Code(s): J45.20 - Mild intermittent asthma, uncomplicated (3) Elevated troponin I level SNOMED Code(s): 746413847 ICD Code: R77.8 - OTHER SPECIFIED ABNORMALITIES OF PLASMA PROTEINS Status: Acute Current Visit: Yes (4) Ulcerative colitis SNOMED Code(s): 84094648 ICD Code: K51.90 - ULCERATIVE COLITIS, UNSPECIFIED, WITHOUT COMPLICATIONS Status: Acute Current Visit: Yes Qualifiers: Digestive disease complication type: unspecified complication (5) Ileostomy status SNOMED Code(s): 370582870, 875315888, 464923761 ICD Code: Z93.2 - ILEOSTOMY STATUS Status: Acute Current Visit: Yes Problem List Initiated/Reviewed/Updated: Yes Orders Last 24hrs: Active Orders 24 hr Category Date Time Status Patient Status [ADT] Routine ADT 03/15/21 14:53 Active Antiembolic Devices [RC] .Routine Care 03/15/21 14:54 Active Intake and Output [RC] 06,14,22 Care 03/15/21 14:54 Active Oxygen Therapy [RC] PRN Care 03/15/21 14:54 Active Pulse Oximetry [RC] PRN Care 03/15/21 14:53 Active RT Aerosol Therapy [RC] ASDIRECTED Care 03/15/21 15:02 Active RT Post Treatment Assessment [RC] Click to Edit Care 03/15/21 15:02 Active Up With Assistance [RC] ASDIRECTED Care 03/15/21 14:52 Active VTE/DVT Education [RC] Click to Edit Care 03/15/21 14:54 Active Vital Signs [RC] 08,12,16,20,00,04 Care 03/15/21 14:53 Active Regular Diet [DIET] Diet 03/15/21 Dinner Active Chest 1V Frontal [CR] Stat Exams 03/15/21 11:43 Taken BASIC METABOLIC PANEL,BMP [CHEM] AM Lab 03/16/21 05:11 Ordered CBC WITH AUTO DIFF [HEME] AM Lab 03/16/21 05:11 Ordered TROPONIN I [CHEM] Stat Lab 03/15/21 20:00 Ordered Acetaminophen [Tylenol Arthritis Pain] Med 03/15/21 15:01 Pending 650 mg PO ASDIRECTED PRN Albuterol [Proventil Neb Soln] Med 03/15/21 15:01 Ordered 1 ampule INH QID PRN Albuterol [Ventolin HFA] Med 03/15/21 15:01 Active 0 gm INH QID PRN Beta-Carotene(A) w/C & E/Min [Prosight] Med 03/16/21 09:00 Ordered 1 tab PO DAILY Budesonide/Formoterol [Symbicort 160-4.5 MCG] Med 03/15/21 21:00 Ordered 1 puff INH BID Calcium Carbonate/Vitamin D3 [Calcium 600-Vit D3 200 Med 03/15/21 18:00 Ordered Tablet] 1 tab PO BIDMEALS Cholecalciferol (Vitamin D3) [Vitamin D3] Med 03/15/21 21:00 Ordered 400 unit PO BID Enoxaparin [Lovenox] Med 03/16/21 08:00 Active 60 mg SUBCUT Q12H Magnesium Gluconate [Magnesium Gluconate] Med 03/16/21 09:00 Ordered 500 mg PO DAILY Montelukast [Singulair] Med 03/16/21 09:00 Ordered 10 mg PO DAILY Multivitamin [Multivitamin] Med 03/16/21 09:00 Ordered 1 tab PO DAILY Ondansetron [Zofran] Med 03/15/21 15:00 Active 4 mg IVPUSH Q4H PRN Sodium Chloride 0.9% [Normal Saline] 1,000 ml Med 03/15/21 12:00 Active IV ASDIRECTED Sodium Chloride 0.9% [Normal Saline] 1,000 ml Med 03/15/21 15:00 Active IV ASDIRECTED Sodium Chloride 0.9% [Saline Flush] Med 03/15/21 11:46 Active 10 ml FLUSH ASDIRECTED PRN levETIRAcetam [Keppra] Med 03/15/21 21:00 Ordered 250 mg PO BID DVT/VTE Prophylaxis Reflex [OM.PC] Per Unit Routine Oth 03/15/21 14:53 Ordered Saline Lock Insert [OM.PC] Routine Oth 03/15/21 11:46 Ordered Sequential Compression Device [OM.PC] Routine Oth 03/15/21 14:52 Ordered Resuscitation Status Routine Resus Stat 03/15/21 14:52 Ordered EKG 12 Lead [EK] Routine Ther 03/15/21 11:43 Ordered Medication Orders Acetaminophen (Acetaminophen 650 Mg Tab.Er) 650 mg PO ASDIRECTED PRN PRN Reason: Headache Albuterol (Albuterol 8 Gm Inhaler) 0 gm INH QID PRN PRN Reason: Dyspnea Enoxaparin Sodium (Enoxaparin 60 Mg/0.6 Ml Syringe) 60 mg SUBCUT Q12H [facility] Sodium Chloride (Normal Saline) 1,000 mls @ 500 mls/hr IV ASDIRECTED LAMIN Last Admin: 03/15/21 12:19 Dose: 500 mls/hr Documented by: FERN Sodium Chloride (Normal Saline) 1,000 mls @ 100 mls/hr IV ASDIRECTED [facility] Last Admin: 03/15/21 15:35 Dose: 100 mls/hr Documented by: KAI Levetiracetam (Levetiracetam 250 Mg Tab) 250 mg PO BID LAMIN Montelukast Sodium (Montelukast 10 Mg Tab) 10 mg PO DAILY [facility] Multivitamins/Minerals (Beta-Carotene (Vitamin A) W/Vitamin C & E Plus Minerals Tab) 1 tab PO DAILY [facility] Non-Formulary Medication (Albuterol [Proventil Neb Soln]) 1 ampule INH QID PRN PRN Reason: Dyspnea Non-Formulary Medication (Budesonide/Formoterol [Symbicort 160-4.5 Mcg]) 1 puff INH BID [facility]IN Non-Formulary Medication (Calcium Carbonate/Vitamin D3 [Calcium 600-Vit D3 200 Tablet]) 1 tab PO BIDMEALS [facility]IN Non-Formulary Medication (Cholecalciferol (Vitamin D3) [Vitamin D3]) 400 unit PO BID [facility] Non-Formulary Medication (Magnesium Gluconate [Magnesium Gluconate]) 500 mg PO DAILY [facility] Non-Formulary Medication (Multivitamin [Multivitamin]) 1 tab PO DAILY [facility] Ondansetron HCl (Ondansetron 4 Mg/2 Ml Sdv) 4 mg IVPUSH Q4H PRN PRN Reason: nausea/vomiting Sodium Chloride (Sodium Chloride 0.9% 10 Ml Syringe) 10 ml FLUSH ASDIRECTED PRN PRN Reason: Keep Vein Open Last Admin: 03/15/21 12:19 Dose: 10 ml Documented by: FERN Assessment/Plan Comment:: I reviewed her labs, and except for mild bicarbonate decrease, and mildly elevated troponin,they look fine. We'll replace IV fluids, ask for a consult with physical and occupational therapy. Consider discharge in the next 1-2 days.
[2021-03-15] MEDS: BUDESONIDE INH SCH (20:40)
[2021-03-15] MEDS: FORMOTEROL INH SCH (20:40)
[2021-03-15] MEDS: LEVETIRACETAM 250 MG PO SCH (20:41)
[2021-03-15] MEDS: Calcium Carbonate 500 MG Tablet PO SCH (21:46)
[2021-03-16] MEDS: Sodium Chloride 0.9% 1,000 ML IV SCH (02:29)
[2021-03-16] MEDS ORDERED: Enoxaparin 60 MG/0.6 ML Syringe SUBCUT SCH (08:00)
[2021-03-16] MEDS ORDERED: Cyanocobalamin (Vitamin B12) 1,000 MCG Tab PO SCH (09:00)
[2021-03-16] MEDS ORDERED: Non-Formulary Medication 1 Each (Multivitamin [Multivitamin] 1 EACH Tablet) PO SCH (09:00)
[2021-03-16] MEDS ORDERED: MAGNESIUM GLUCONATE 30 MG PO SCH (09:00)
[2021-03-16] MEDS ORDERED: Beta-Carotene (Vitamin A) w/Vitamin C & E plus Minerals Tab PO SCH (09:00)
[2021-03-16] MEDS ORDERED: Potassium Chloride 20 MEQ Tab.ER PO ONE (09:20)
--- NOTE | 2021-03-16 09:24 | PCM.PN ---
- General Info Date of Service: 03/16/21 Subjective Update: Kristin is doing better this morning.She has no complaints - Review of Systems General: Reports: No Symptoms HEENT: Reports: No Symptoms Pulmonary: Reports: No Symptoms Cardiovascular: Reports: No Symptoms - Patient Data Vitals - Most Recent: Last Vital Signs Temp 98.2 F 03/16/21 08:20 Pulse 91 03/16/21 08:20 Resp 16 03/16/21 08:20 BP 121/68 03/16/21 08:20 Pulse Ox 96 03/16/21 08:20 Weight - Most Recent: 60.419 kg I&O - Last 24 Hours: Intake & Output 03/15/21 03/16/21 03/16/21 22:59 06:59 14:59 Intake Total 688 805 Output Total 50 200 Balance 638 605 Lab Results Last 24 Hours: Laboratory Results - last 24 hr 03/15/21 03/15/21 03/15/21 Range/Units 12:13 12:13 12:13 WBC 9.7 (3.0-10.3) x10-3/uL RBC 4.63 (3.60-5.20) x10(6)uL Hgb 14.6 (11.4-15.5) g/dL Hct 43.0 (34.2-48.2) % MCV 92.8 (76.7-100.5) fL MCH 31.6 (23.9-33.9) pg MCHC 34.0 (31.9-34.8) g/dL RDW 13.0 (12.3-16.5) % Plt Count 213 (151-488) x10(3)uL MPV 7.5 (7.1-12.4) fL Neut % (Auto) 81.9 H (30.8-76.2) % Lymph % (Auto) 11.0 L (18.4-52.1) % Falls % (Auto) 6.3 (4.4-15.7) % Eos % (Auto) 0.5 L (0.6-8.1) % Baso % (Auto) 0.3 (0.2-1.5) % Neut # (Auto) 7.9 H (1.5-6.3) x10-3/uL Lymph # (Auto) 1.1 (1.0-4.4) x10-3/uL Falls # (Auto) 0.6 (0.3-1.0) x10-3/uL Eos # (Auto) 0.1 (0.0-0.8) x10-3/uL Baso # (Auto) 0.0 (0.0-0.1) x10-3/uL Sodium 143 (135-145) mmol/L Potassium 3.9 (3.5-5.3) mmol/L Chloride 104 (100-110) mmol/L Carbon Dioxide 29 (21-32) mmol/L BUN 21 H (7-18) mg/dL Creatinine 0.9 (0.55-1.02) mg/dL Est Cr Clr Drug Dosing TNP Estimated GFR (MDRD) 60 (>60) BUN/Creatinine Ratio 23.3 H (9-20) Glucose 106 (80-116) mg/dL Calcium 9.8 (8.6-10.2) mg/dL Total Bilirubin 1.0 (0.1-1.3) mg/dL AST 34 H (5-25) IU/L ALT 28 (12-36) U/L Alkaline Phosphatase 64 (56-112) IU/L Troponin I 135.8 H* (4.0-60.3) pg/mL NT-Pro-B Natriuret Pep (<=450) pg/mL Total Protein 7.6 (6.0-8.0) g/dL Albumin 4.1 (3.2-4.6) g/dL Globulin 3.5 g/dL Albumin/Globulin Ratio 1.2 Urine Color (YELLOW) Urine Appearance (CLEAR) Urine pH (5.0-6.5) Ur Specific Sumner (1.010-1.025) Urine Protein (NEGATIVE) mg/dL Urine Glucose (UA) (NORMAL) mg/dL Urine Ketones (NEGATIVE) mg/dL Urine Occult Blood (NEGATIVE) Urine Nitrite (NEGATIVE) Urine Bilirubin (NEGATIVE) Urine Urobilinogen (NEGATIVE) mg/dL Ur Leukocyte Esterase (NEGATIVE) Urine RBC (0-5) Urine WBC (0-5) Ur Squamous Epith Cells (NS,R,O) Urine Bacteria (NS) SARS-CoV-2 RNA (ERNIE) (NEGATIVE) 03/15/21 03/15/21 03/15/21 Range/Units 14:00 14:15 14:45 WBC (3.0-10.3) x10-3/uL RBC (3.60-5.20) x10(6)uL Hgb (11.4-15.5) g/dL Hct (34.2-48.2) % MCV (76.7-100.5) fL MCH (23.9-33.9) pg MCHC (31.9-34.8) g/dL RDW (12.3-16.5) % Plt Count (151-488) x10(3)uL MPV (7.1-12.4) fL Neut % (Auto) (30.8-76.2) % Lymph % (Auto) (18.4-52.1) % Falls % (Auto) (4.4-15.7) % Eos % (Auto) (0.6-8.1) % Baso % (Auto) (0.2-1.5) % Neut # (Auto) (1.5-6.3) x10-3/uL Lymph # (Auto) (1.0-4.4) x10-3/uL Falls # (Auto) (0.3-1.0) x10-3/uL Eos # (Auto) (0.0-0.8) x10-3/uL Baso # (Auto) (0.0-0.1) x10-3/uL Sodium (135-145) mmol/L Potassium (3.5-5.3) mmol/L Chloride (100-110) mmol/L Carbon Dioxide (21-32) mmol/L BUN (7-18) mg/dL Creatinine (0.55-1.02) mg/dL Est Cr Clr Drug Dosing Estimated GFR (MDRD) (>60) BUN/Creatinine Ratio (9-20) Glucose (80-116) mg/dL Calcium (8.6-10.2) mg/dL Total Bilirubin (0.1-1.3) mg/dL AST (5-25) IU/L ALT (12-36) U/L Alkaline Phosphatase (56-112) IU/L Troponin I 117.5 H* (4.0-60.3) pg/mL NT-Pro-B Natriuret Pep 185 (<=450) pg/mL Total Protein (6.0-8.0) g/dL Albumin (3.2-4.6) g/dL Globulin g/dL Albumin/Globulin Ratio Urine Color Yellow (YELLOW) Urine Appearance Clear (CLEAR) Urine pH 5.0 (5.0-6.5) Ur Specific [place] 1.020 (1.010-1.025) Urine Protein Negative (NEGATIVE) mg/dL Urine Glucose (UA) Normal (NORMAL) mg/dL Urine Ketones 15 H (NEGATIVE) mg/dL Urine Occult Blood Negative (NEGATIVE) Urine Nitrite Negative (NEGATIVE) Urine Bilirubin Negative (NEGATIVE) Urine Urobilinogen Normal (NEGATIVE) mg/dL Ur Leukocyte Esterase Negative (NEGATIVE) Urine RBC 0-5 (0-5) Urine WBC 0-5 (0-5) Ur Squamous Epith Cells Occasional (NS,R,O) Urine Bacteria Few H (NS) SARS-CoV-2 RNA (ERNIE) Negative (NEGATIVE) 03/15/21 03/16/21 03/16/21 Range/Units 20:05 06:15 06:15 WBC 5.8 (3.0-10.3) x10-3/uL RBC 4.17 (3.60-5.20) x10(6)uL Hgb 12.7 (11.4-15.5) g/dL Hct 38.3 (34.2-48.2) % MCV 91.8 (76.7-100.5) fL MCH 30.5 (23.9-33.9) pg MCHC 33.2 (31.9-34.8) g/dL RDW 13.2 (12.3-16.5) % Plt Count 182 (151-488) x10(3)uL MPV 6.9 L (7.1-12.4) fL Neut % (Auto) 50.1 (30.8-76.2) % Lymph % (Auto) 37.8 (18.4-52.1) % Falls % (Auto) 10.0 (4.4-15.7) % Eos % (Auto) 1.6 (0.6-8.1) % Baso % (Auto) 0.5 (0.2-1.5) % Neut # (Auto) 2.9 (1.5-6.3) x10-3/uL Lymph # (Auto) 2.2 (1.0-4.4) x10-3/uL Falls # (Auto) 0.6 (0.3-1.0) x10-3/uL Eos # (Auto) 0.1 (0.0-0.8) x10-3/uL Baso # (Auto) 0.0 (0.0-0.1) x10-3/uL Sodium 145 (135-145) mmol/L Potassium 3.2 L (3.5-5.3) mmol/L Chloride 109 D (100-110) mmol/L Carbon Dioxide 25 (21-32) mmol/L BUN 17 (7-18) mg/dL Creatinine 0.9 (0.55-1.02) mg/dL Est Cr Clr Drug Dosing 38.12 Estimated GFR (MDRD) 60 (>60) BUN/Creatinine Ratio 18.9 (9-20) Glucose 90 (80-116) mg/dL Calcium 7.9 L (8.6-10.2) mg/dL Total Bilirubin (0.1-1.3) mg/dL AST (5-25) IU/L ALT (12-36) U/L Alkaline Phosphatase (56-112) IU/L Troponin I 118.3 H* (4.0-60.3) pg/mL NT-Pro-B Natriuret Pep (<=450) pg/mL Total Protein (6.0-8.0) g/dL Albumin (3.2-4.6) g/dL Globulin g/dL Albumin/Globulin Ratio Urine Color (YELLOW) Urine Appearance (CLEAR) Urine pH (5.0-6.5) Ur Specific [place] (1.010-1.025) Urine Protein (NEGATIVE) mg/dL Urine Glucose (UA) (NORMAL) mg/dL Urine Ketones (NEGATIVE) mg/dL Urine Occult Blood (NEGATIVE) Urine Nitrite (NEGATIVE) Urine Bilirubin (NEGATIVE) Urine Urobilinogen (NEGATIVE) mg/dL Ur Leukocyte Esterase (NEGATIVE) Urine RBC (0-5) Urine WBC (0-5) Ur Squamous Epith Cells (NS,R,O) Urine Bacteria (NS) SARS-CoV-2 RNA (ERNIE) (NEGATIVE) 03/16/21 Range/Units 06:15 WBC (3.0-10.3) x10-3/uL RBC (3.60-5.20) x10(6)uL Hgb (11.4-15.5) g/dL Hct (34.2-48.2) % MCV (76.7-100.5) fL MCH (23.9-33.9) pg MCHC (31.9-34.8) g/dL RDW (12.3-16.5) % Plt Count (151-488) x10(3)uL MPV (7.1-12.4) fL Neut % (Auto) (30.8-76.2) % Lymph % (Auto) (18.4-52.1) % Falls % (Auto) (4.4-15.7) % Eos % (Auto) (0.6-8.1) % Baso % (Auto) (0.2-1.5) % Neut # (Auto) (1.5-6.3) x10-3/uL Lymph # (Auto) (1.0-4.4) x10-3/uL Falls # (Auto) (0.3-1.0) x10-3/uL Eos # (Auto) (0.0-0.8) x10-3/uL Baso # (Auto) (0.0-0.1) x10-3/uL Sodium (135-145) mmol/L Potassium (3.5-5.3) mmol/L Chloride (100-110) mmol/L Carbon Dioxide (21-32) mmol/L BUN (7-18) mg/dL Creatinine (0.55-1.02) mg/dL Est Cr Clr Drug Dosing Estimated GFR (MDRD) (>60) BUN/Creatinine Ratio (9-20) Glucose (80-116) mg/dL Calcium (8.6-10.2) mg/dL Total Bilirubin (0.1-1.3) mg/dL AST (5-25) IU/L ALT (12-36) U/L Alkaline Phosphatase (56-112) IU/L Troponin I 116.7 H* (4.0-60.3) pg/mL NT-Pro-B Natriuret Pep (<=450) pg/mL Total Protein (6.0-8.0) g/dL Albumin (3.2-4.6) g/dL Globulin g/dL Albumin/Globulin Ratio Urine Color (YELLOW) Urine Appearance (CLEAR) Urine pH (5.0-6.5) Ur Specific [place] (1.010-1.025) Urine Protein (NEGATIVE) mg/dL Urine Glucose (UA) (NORMAL) mg/dL Urine Ketones (NEGATIVE) mg/dL Urine Occult Blood (NEGATIVE) Urine Nitrite (NEGATIVE) Urine Bilirubin (NEGATIVE) Urine Urobilinogen (NEGATIVE) mg/dL Ur Leukocyte Esterase (NEGATIVE) Urine RBC (0-5) Urine WBC (0-5) Ur Squamous Epith Cells (NS,R,O) Urine Bacteria (NS) SARS-CoV-2 RNA (ERNIE) (NEGATIVE) Mark Anthony Results Last 24 Hours: Microbiology 03/15/21 15:00 Occult Blood - Final Stool / Feces Med Orders - Current: Current Medications Acetaminophen (Acetaminophen 650 Mg Tab.Er) 650 mg PO ASDIRECTED PRN PRN Reason: Headache Albuterol (Albuterol 8 Gm Inhaler) 0 gm INH QID PRN PRN Reason: Dyspnea Calcium Carbonate/Glycine (Calcium Carbonate 500 Mg Tablet) 500 mg PO BIDMEALS [facility] Last Admin: 03/15/21 21:46 Dose: Not Given Documented by: Cyanocobalamin (Cyanocobalamin (Vitamin B12) 1,000 Mcg Tab) mcg PO DAILY [facility] Enoxaparin Sodium (Enoxaparin 60 Mg/0.6 Ml Syringe) 60 mg SUBCUT Q12H [facility] Levetiracetam (Levetiracetam 250 Mg Tab Own Med) 250 mg PO BID [facility] Last Admin: 03/15/21 20:41 Dose: 250 mg Documented by: Montelukast Sodium (Montelukast 10 Mg Tab Own Med) 10 mg PO DAILY [facility] Multivitamins/Minerals (Beta-Carotene (Vitamin A) W/Vitamin C & E Plus Minerals Tab) 1 tab PO DAILY [facility] Non-Formulary Medication (Albuterol [Proventil Neb Soln]) 1 ampule INH QID PRN PRN Reason: Dyspnea Budesonide/Formoterol ( Symbicort) 160-4.5 Mcg Inh Own Med 1 puff INH BID [facility] Last Admin: 03/15/21 20:40 Dose: 1 puff Documented by: Non-Formulary Medication (Cholecalciferol (Vitamin D3) [Vitamin D3]) 400 unit PO BID [facility] Non-Formulary Medication (Magnesium Gluconate [Magnesium Gluconate]) 500 mg PO DAILY [facility] Non-Formulary Medication (Multivitamin [Multivitamin]) 1 tab PO DAILY [facility] Ondansetron HCl (Ondansetron 4 Mg/2 Ml Sdv) 4 mg IVPUSH Q4H PRN PRN Reason: nausea/vomiting Potassium Chloride (Potassium Chloride 20 Meq Tab.Er) 40 meq PO ONETIME ONE Stop: 03/16/21 09:21 Sodium Chloride (Sodium Chloride 0.9% 10 Ml Syringe) 10 ml FLUSH ASDIRECTED PRN PRN Reason: Keep Vein Open Last Admin: 03/15/21 12:19 Dose: 10 ml Documented by: Discontinued Medications Enoxaparin Sodium (Enoxaparin 60 Mg/0.6 Ml Syringe) 60 mg SUBCUT ONETIME ONE Stop: 03/15/21 16:01 Last Admin: 03/15/21 16:47 Dose: 60 mg Documented by: Sodium Chloride (Normal Saline) 1,000 mls @ 500 mls/hr IV ASDIRECTED [facility] Last Admin: 03/15/21 12:19 Dose: 500 mls/hr Documented by: Sodium Chloride (Normal Saline) 1,000 mls @ 100 mls/hr IV ASDIRECTED [facility] Last Admin: 03/16/21 02:29 Dose: 100 mls/hr Documented by: - Exam Quality Assessment: No: Supplemental Oxygen General: Alert, Oriented HEENT: Pupils Equal Neck: Supple Lungs: Clear to Auscultation Cardiovascular: Regular Rate Skin: Warm Neurological: No New Focal Deficit Psy/Mental Status: Alert, Normal Affect - Patient Data Lab Results Last 24 hrs: Laboratory Results - last 24 hr 03/15/21 03/15/21 03/15/21 Range/Units 12:13 12:13 12:13 WBC 9.7 (3.0-10.3) x10-3/uL RBC 4.63 (3.60-5.20) x10(6)uL Hgb 14.6 (11.4-15.5) g/dL Hct 43.0 (34.2-48.2) % MCV 92.8 (76.7-100.5) fL MCH 31.6 (23.9-33.9) pg MCHC 34.0 (31.9-34.8) g/dL RDW 13.0 (12.3-16.5) % Plt Count 213 (151-488) x10(3)uL MPV 7.5 (7.1-12.4) fL Neut % (Auto) 81.9 H (30.8-76.2) % Lymph % (Auto) 11.0 L (18.4-52.1) % Falls % (Auto) 6.3 (4.4-15.7) % Eos % (Auto) 0.5 L (0.6-8.1) % Baso % (Auto) 0.3 (0.2-1.5) % Neut # (Auto) 7.9 H (1.5-6.3) x10-3/uL Lymph # (Auto) 1.1 (1.0-4.4) x10-3/uL Falls # (Auto) 0.6 (0.3-1.0) x10-3/uL Eos # (Auto) 0.1 (0.0-0.8) x10-3/uL Baso # (Auto) 0.0 (0.0-0.1) x10-3/uL Sodium 143 (135-145) mmol/L Potassium 3.9 (3.5-5.3) mmol/L Chloride 104 (100-110) mmol/L Carbon Dioxide 29 (21-32) mmol/L BUN 21 H (7-18) mg/dL Creatinine 0.9 (0.55-1.02) mg/dL Est Cr Clr Drug Dosing TNP Estimated GFR (MDRD) 60 (>60) BUN/Creatinine Ratio 23.3 H (9-20) Glucose 106 (80-116) mg/dL Calcium 9.8 (8.6-10.2) mg/dL Total Bilirubin 1.0 (0.1-1.3) mg/dL AST 34 H (5-25) IU/L ALT 28 (12-36) U/L Alkaline Phosphatase 64 (56-112) IU/L Troponin I 135.8 H* (4.0-60.3) pg/mL NT-Pro-B Natriuret Pep (<=450) pg/mL Total Protein 7.6 (6.0-8.0) g/dL Albumin 4.1 (3.2-4.6) g/dL Globulin 3.5 g/dL Albumin/Globulin Ratio 1.2 Urine Color (YELLOW) Urine Appearance (CLEAR) Urine pH (5.0-6.5) Ur Specific [place]ner (1.010-1.025) Urine Protein (NEGATIVE) mg/dL Urine Glucose (UA) (NORMAL) mg/dL Urine Ketones (NEGATIVE) mg/dL Urine Occult Blood (NEGATIVE) Urine Nitrite (NEGATIVE) Urine Bilirubin (NEGATIVE) Urine Urobilinogen (NEGATIVE) mg/dL Ur Leukocyte Esterase (NEGATIVE) Urine RBC (0-5) Urine WBC (0-5) Ur Squamous Epith Cells (NS,R,O) Urine Bacteria (NS) SARS-CoV-2 RNA (ERNIE) (NEGATIVE) 03/15/21 03/15/21 03/15/21 Range/Units 14:00 14:15 14:45 WBC (3.0-10.3) x10-3/uL RBC (3.60-5.20) x10(6)uL Hgb (11.4-15.5) g/dL Hct (34.2-48.2) % MCV (76.7-100.5) fL MCH (23.9-33.9) pg MCHC (31.9-34.8) g/dL RDW (12.3-16.5) % Plt Count (151-488) x10(3)uL MPV (7.1-12.4) fL Neut % (Auto) (30.8-76.2) % Lymph % (Auto) (18.4-52.1) % Falls % (Auto) (4.4-15.7) % Eos % (Auto) (0.6-8.1) % Baso % (Auto) (0.2-1.5) % Neut # (Auto) (1.5-6.3) x10-3/uL Lymph # (Auto) (1.0-4.4) x10-3/uL Falls # (Auto) (0.3-1.0) x10-3/uL Eos # (Auto) (0.0-0.8) x10-3/uL Baso # (Auto) (0.0-0.1) x10-3/uL Sodium (135-145) mmol/L Potassium (3.5-5.3) mmol/L Chloride (100-110) mmol/L Carbon Dioxide (21-32) mmol/L BUN (7-18) mg/dL Creatinine (0.55-1.02) mg/dL Est Cr Clr Drug Dosing Estimated GFR (MDRD) (>60) BUN/Creatinine Ratio (9-20) Glucose (80-116) mg/dL Calcium (8.6-10.2) mg/dL Total Bilirubin (0.1-1.3) mg/dL AST (5-25) IU/L ALT (12-36) U/L Alkaline Phosphatase (56-112) IU/L Troponin I 117.5 H* (4.0-60.3) pg/mL NT-Pro-B Natriuret Pep 185 (<=450) pg/mL Total Protein (6.0-8.0) g/dL Albumin (3.2-4.6) g/dL Globulin g/dL Albumin/Globulin Ratio Urine Color Yellow (YELLOW) Urine Appearance Clear (CLEAR) Urine pH 5.0 (5.0-6.5) Ur Specific Sumner 1.020 (1.010-1.025) Urine Protein Negative (NEGATIVE) mg/dL Urine Glucose (UA) Normal (NORMAL) mg/dL Urine Ketones 15 H (NEGATIVE) mg/dL Urine Occult Blood Negative (NEGATIVE) Urine Nitrite Negative (NEGATIVE) Urine Bilirubin Negative (NEGATIVE) Urine Urobilinogen Normal (NEGATIVE) mg/dL Ur Leukocyte Esterase Negative (NEGATIVE) Urine RBC 0-5 (0-5) Urine WBC 0-5 (0-5) Ur Squamous Epith Cells Occasional (NS,R,O) Urine Bacteria Few H (NS) SARS-CoV-2 RNA (ERNIE) Negative (NEGATIVE) 03/15/21 03/16/21 03/16/21 Range/Units 20:05 06:15 06:15 WBC 5.8 (3.0-10.3) x10-3/uL RBC 4.17 (3.60-5.20) x10(6)uL Hgb 12.7 (11.4-15.5) g/dL Hct 38.3 (34.2-48.2) % MCV 91.8 (76.7-100.5) fL MCH 30.5 (23.9-33.9) pg MCHC 33.2 (31.9-34.8) g/dL RDW 13.2 (12.3-16.5) % Plt Count 182 (151-488) x10(3)uL MPV 6.9 L (7.1-12.4) fL Neut % (Auto) 50.1 (30.8-76.2) % Lymph % (Auto) 37.8 (18.4-52.1) % Falls % (Auto) 10.0 (4.4-15.7) % Eos % (Auto) 1.6 (0.6-8.1) % Baso % (Auto) 0.5 (0.2-1.5) % Neut # (Auto) 2.9 (1.5-6.3) x10-3/uL Lymph # (Auto) 2.2 (1.0-4.4) x10-3/uL Falls # (Auto) 0.6 (0.3-1.0) x10-3/uL Eos # (Auto) 0.1 (0.0-0.8) x10-3/uL Baso # (Auto) 0.0 (0.0-0.1) x10-3/uL Sodium 145 (135-145) mmol/L Potassium 3.2 L (3.5-5.3) mmol/L Chloride 109 D (100-110) mmol/L Carbon Dioxide 25 (21-32) mmol/L BUN 17 (7-18) mg/dL Creatinine 0.9 (0.55-1.02) mg/dL Est Cr Clr Drug Dosing 38.12 Estimated GFR (MDRD) 60 (>60) BUN/Creatinine Ratio 18.9 (9-20) Glucose 90 (80-116) mg/dL Calcium 7.9 L (8.6-10.2) mg/dL Total Bilirubin (0.1-1.3) mg/dL AST (5-25) IU/L ALT (12-36) U/L Alkaline Phosphatase (56-112) IU/L Troponin I 118.3 H* (4.0-60.3) pg/mL NT-Pro-B Natriuret Pep (<=450) pg/mL Total Protein (6.0-8.0) g/dL Albumin (3.2-4.6) g/dL Globulin g/dL Albumin/Globulin Ratio Urine Color (YELLOW) Urine Appearance (CLEAR) Urine pH (5.0-6.5) Ur Specific [place]ner (1.010-1.025) Urine Protein (NEGATIVE) mg/dL Urine Glucose (UA) (NORMAL) mg/dL Urine Ketones (NEGATIVE) mg/dL Urine Occult Blood (NEGATIVE) Urine Nitrite (NEGATIVE) Urine Bilirubin (NEGATIVE) Urine Urobilinogen (NEGATIVE) mg/dL Ur Leukocyte Esterase (NEGATIVE) Urine RBC (0-5) Urine WBC (0-5) Ur Squamous Epith Cells (NS,R,O) Urine Bacteria (NS) SARS-CoV-2 RNA (ERNIE) (NEGATIVE) 03/16/21 Range/Units 06:15 WBC (3.0-10.3) x10-3/uL RBC (3.60-5.20) x10(6)uL Hgb (11.4-15.5) g/dL Hct (34.2-48.2) % MCV (76.7-100.5) fL MCH (23.9-33.9) pg MCHC (31.9-34.8) g/dL RDW (12.3-16.5) % Plt Count (151-488) x10(3)uL MPV (7.1-12.4) fL Neut % (Auto) (30.8-76.2) % Lymph % (Auto) (18.4-52.1) % Falls % (Auto) (4.4-15.7) % Eos % (Auto) (0.6-8.1) % Baso % (Auto) (0.2-1.5) % Neut # (Auto) (1.5-6.3) x10-3/uL Lymph # (Auto) (1.0-4.4) x10-3/uL Falls # (Auto) (0.3-1.0) x10-3/uL Eos # (Auto) (0.0-0.8) x10-3/uL Baso # (Auto) (0.0-0.1) x10-3/uL Sodium (135-145) mmol/L Potassium (3.5-5.3) mmol/L Chloride (100-110) mmol/L Carbon Dioxide (21-32) mmol/L BUN (7-18) mg/dL Creatinine (0.55-1.02) mg/dL Est Cr Clr Drug Dosing Estimated GFR (MDRD) (>60) BUN/Creatinine Ratio (9-20) Glucose (80-116) mg/dL Calcium (8.6-10.2) mg/dL Total Bilirubin (0.1-1.3) mg/dL AST (5-25) IU/L ALT (12-36) U/L Alkaline Phosphatase (56-112) IU/L Troponin I 116.7 H* (4.0-60.3) pg/mL NT-Pro-B Natriuret Pep (<=450) pg/mL Total Protein (6.0-8.0) g/dL Albumin (3.2-4.6) g/dL Globulin g/dL Albumin/Globulin Ratio Urine Color (YELLOW) Urine Appearance (CLEAR) Urine pH (5.0-6.5) Ur Specific Sumner (1.010-1.025) Urine Protein (NEGATIVE) mg/dL Urine Glucose (UA) (NORMAL) mg/dL Urine Ketones (NEGATIVE) mg/dL Urine Occult Blood (NEGATIVE) Urine Nitrite (NEGATIVE) Urine Bilirubin (NEGATIVE) Urine Urobilinogen (NEGATIVE) mg/dL Ur Leukocyte Esterase (NEGATIVE) Urine RBC (0-5) Urine WBC (0-5) Ur Squamous Epith Cells (NS,R,O) Urine Bacteria (NS) SARS-CoV-2 RNA (ERNIE) (NEGATIVE) Result Diagrams: 03/16/21 06:15 03/16/21 06:15 Mark Anthony Results Last 24 hrs: Microbiology 03/15/21 15:00 Occult Blood - Final Stool / Feces Sepsis Event Note - Evaluation Sepsis Screening Result: No Definite Risk - Focused Exam Vital Signs: Vital Signs Temp Temp Pulse Resp BP Pulse Ox 03/16/21 08:20 98.2 F 91 16 121/68 96 03/16/21 04:55 98.5 F 80 18 109/55 L 94 L 03/16/21 00:00 18 - Problem List & Annotations (1) Weakness SNOMED Code(s): 35242606 Code(s): R53.1 - WEAKNESS Status: Acute Current Visit: Yes (2) Mild intermittent asthma SNOMED Code(s): 830552677 Code(s): J45.20 - MILD INTERMITTENT ASTHMA, UNCOMPLICATED Status: Acute Current Visit: Yes Qualifiers: Asthma complication type: uncomplicated Qualified Code(s): J45.20 - Mild intermittent asthma, uncomplicated (3) Elevated troponin I level SNOMED Code(s): 176189687 Code(s): R77.8 - OTHER SPECIFIED ABNORMALITIES OF PLASMA PROTEINS Status: Acute Current Visit: Yes (4) Ulcerative colitis SNOMED Code(s): 25100522 Code(s): K51.90 - ULCERATIVE COLITIS, UNSPECIFIED, WITHOUT COMPLICATIONS Status: Acute Current Visit: Yes Qualifiers: Digestive disease complication type: unspecified complication (5) Ileostomy status SNOMED Code(s): 462409347, 847180105, 225263280 Code(s): Z93.2 - ILEOSTOMY STATUS Status: Acute Current Visit: Yes (6) Hypokalemia SNOMED Code(s): 61719694 Code(s): E87.6 - HYPOKALEMIA Status: Acute Current Visit: Yes - Problem List Review Problem List Initiated/Reviewed/Updated: Yes - My Orders Last 24 Hours: My Active Orders 03/16/21 08:01 OT Evaluation and Treatment [CONS] Routine PT Evaluation and Treatment [CONS] Routine 03/16/21 09:00 Cyanocobalamin (Vitamin B12) [Vitamin B12] DOSE mcg PO DAILY 03/16/21 09:20 Potassium Chloride [Klor-Con M20] 40 meq PO ONETIME ONE 03/17/21 05:11 BASIC METABOLIC PANEL,BMP [CHEM] AM CBC WITH AUTO DIFF [HEME] AM - Plan Plan:: She has no cardiopulmonary symptoms. I repeat troponin this morning. A potassium slightly low, which I'll replace orally. I'll stop IV fluids, ask for physical therapy evaluation to see if she is able to return to community based living tomorrow
[2021-03-16] MEDS ORDERED: Acetaminophen 325 MG Tab PO PRN (09:44)
[2021-03-16] MEDS ORDERED: Albuterol 0.083% 2.5 MG/3 ML Neb Soln INH PRN (09:44)
[2021-03-16] MEDS: LEVETIRACETAM 250 MG PO SCH ×2 (10:05→20:39)
[2021-03-16] MEDS: FORMOTEROL INH SCH ×2 (10:08→20:38)
[2021-03-16] MEDS: BUDESONIDE INH SCH ×2 (10:08→20:38)
[2021-03-16] MEDS: Non-Formulary Medication 1 Each (Cholecalciferol (Vitamin D3) [Vitamin D3] 1,000 UNIT Caps PO SCH ×2 (19:57→20:00)
[2021-03-16] MEDS: Calcium Carbonate 500 MG Tablet PO SCH (19:59)
[2021-03-17] MEDS ORDERED: ALPRAZolam 0.25 MG Tab PO STA (08:31)
[2021-03-17] MEDS: BUDESONIDE INH SCH (08:59)
[2021-03-17] MEDS: FORMOTEROL INH SCH (08:59)
[2021-03-17] MEDS: LEVETIRACETAM 250 MG PO SCH (09:00)
--- NOTE | 2021-03-17 09:22 | PCM.PN ---
- General Info Date of Service: 03/17/21 Subjective Update: Kristin had an episode of right sided chest pain.Mild,reproducible,non radiating pain She does show signs of confusion,anxiety as well. Functional Status: Reports: Tolerating Diet. Denies: Ambulating - Review of Systems Gastrointestinal: Reports: No Symptoms Genitourinary: Reports: No Symptoms Musculoskeletal: Reports: No Symptoms - Patient Data Vitals - Most Recent: Last Vital Signs Temp 97.6 F 03/17/21 08:10 Pulse 68 03/17/21 08:10 Resp 16 03/17/21 08:10 BP 119/68 03/17/21 08:10 Pulse Ox 95 03/17/21 08:10 Weight - Most Recent: 60.419 kg I&O - Last 24 Hours: Intake & Output 03/16/21 03/17/21 03/17/21 22:59 06:59 14:59 Intake Total 493 200 Output Total 100 200 Balance 393 -200 200 Lab Results Last 24 Hours: Laboratory Results - last 24 hr 03/17/21 03/17/21 03/17/21 Range/Units 06:15 06:15 06:15 WBC 6.2 (3.0-10.3) x10-3/uL RBC 4.28 (3.60-5.20) x10(6)uL Hgb 13.1 (11.4-15.5) g/dL Hct 39.3 (34.2-48.2) % MCV 91.8 (76.7-100.5) fL MCH 30.5 (23.9-33.9) pg MCHC 33.3 (31.9-34.8) g/dL RDW 13.2 (12.3-16.5) % Plt Count 195 (151-488) x10(3)uL MPV 6.9 L (7.1-12.4) fL Neut % (Auto) 46.6 (30.8-76.2) % Lymph % (Auto) 38.5 (18.4-52.1) % [place] % (Auto) 11.8 (4.4-15.7) % Eos % (Auto) 2.4 (0.6-8.1) % Baso % (Auto) 0.7 (0.2-1.5) % Neut # (Auto) 2.9 (1.5-6.3) x10-3/uL Lymph # (Auto) 2.4 (1.0-4.4) x10-3/uL [place] # (Auto) 0.7 (0.3-1.0) x10-3/uL Eos # (Auto) 0.1 (0.0-0.8) x10-3/uL Baso # (Auto) 0.0 (0.0-0.1) x10-3/uL Sodium 143 (135-145) mmol/L Potassium 3.9 (3.5-5.3) mmol/L Chloride 110 (100-110) mmol/L Carbon Dioxide 23 (21-32) mmol/L BUN 16 (7-18) mg/dL Creatinine 0.8 (0.55-1.02) mg/dL Est Cr Clr Drug Dosing 42.88 mL/min Estimated GFR (MDRD) > 60 (>60) BUN/Creatinine Ratio 20.0 (9-20) Glucose 99 (80-116) mg/dL Calcium 8.7 (8.6-10.2) mg/dL Troponin I 112.1 H* (4.0-60.3) pg/mL Med Orders - Current: Current Medications Acetaminophen (Acetaminophen 325 Mg Tab) 650 mg PO Q4H PRN PRN Reason: Headache Albuterol (Albuterol 0.083% 2.5 Mg/3 Ml Neb Soln) 2.5 mg INH QID PRN PRN Reason: Dyspnea Albuterol (Albuterol 8 Gm Inhaler) 0 gm INH QID PRN PRN Reason: Dyspnea Levetiracetam (Levetiracetam 250 Mg Tab Own Med) 250 mg PO BID [facility] Last Admin: 03/17/21 09:00 Dose: 250 mg Documented by: Montelukast Sodium (Montelukast 10 Mg Tab Own Med) 10 mg PO DAILY [facility] Last Admin: 03/17/21 09:00 Dose: 10 mg Documented by: Budesonide/Formoterol ( Symbicort) 160-4.5 Mcg Inh Own Med 1 puff INH BID [facility] Last Admin: 03/17/21 08:59 Dose: 1 puff Documented by: Ondansetron HCl (Ondansetron 4 Mg/2 Ml Sdv) 4 mg IVPUSH Q4H PRN PRN Reason: nausea/vomiting Sodium Chloride (Sodium Chloride 0.9% 10 Ml Syringe) 10 ml FLUSH ASDIRECTED PRN PRN Reason: Keep Vein Open Last Admin: 03/15/21 12:19 Dose: 10 ml Documented by: Discontinued Medications Alprazolam (Alprazolam 0.25 Mg Tab) 0.25 mg PO STAT [facility] Stop: 03/17/21 08:32 Last Admin: 03/17/21 08:58 Dose: 0.25 mg Documented by: Calcium Carbonate/Glycine (Calcium Carbonate 500 Mg Tablet) 500 mg PO BIDMEALS [facility] Last Admin: 03/16/21 19:59 Dose: Not Given Documented by: Cyanocobalamin (Cyanocobalamin (Vitamin B12) 1,000 Mcg Tab) mcg PO DAILY [facility] Enoxaparin Sodium (Enoxaparin 60 Mg/0.6 Ml Syringe) 60 mg SUBCUT ONETIME ONE Stop: 03/15/21 16:01 Last Admin: 03/15/21 16:47 Dose: 60 mg Documented by: Enoxaparin Sodium (Enoxaparin 60 Mg/0.6 Ml Syringe) 60 mg SUBCUT Q12H [facility] Last Admin: 03/16/21 19:58 Dose: Not Given Documented by: Sodium Chloride (Normal Saline) 1,000 mls @ 500 mls/hr IV ASDIRECTED [facility] Last Admin: 03/15/21 12:19 Dose: 500 mls/hr Documented by: Sodium Chloride (Normal Saline) 1,000 mls @ 100 mls/hr IV ASDIRECTED [facility] Last Admin: 03/16/21 02:29 Dose: 100 mls/hr Documented by: Multivitamins/Minerals (Beta-Carotene (Vitamin A) W/Vitamin C & E Plus Minerals Tab) 1 tab PO DAILY [facility] Last Admin: 03/16/21 20:00 Dose: Not Given Documented by: Non-Formulary Medication (Cholecalciferol (Vitamin D3) [Vitamin D3]) 400 unit PO BID [facility] Last Admin: 03/16/21 20:00 Dose: Not Given Documented by: Non-Formulary Medication (Magnesium Gluconate [Magnesium Gluconate]) 500 mg PO DAILY [facility] Last Admin: 03/16/21 20:00 Dose: Not Given Documented by: Non-Formulary Medication (Multivitamin [Multivitamin]) 1 tab PO DAILY [facility] Last Admin: 03/16/21 20:00 Dose: Not Given Documented by: Potassium Chloride (Potassium Chloride 20 Meq Tab.Er) 40 meq PO ONETIME ONE Stop: 03/16/21 09:21 Last Admin: 03/16/21 12:04 Dose: 40 meq Documented by: - Exam General: Alert. No: Oriented, Cooperative HEENT: Pupils Equal Neck: Supple Lungs: Clear to Auscultation Cardiovascular: Regular Rate, Regular Rhythm, Other (Tender chest wall) GI/Abdominal Exam: Normal Bowel Sounds, Soft Back Exam: Normal Inspection Extremities: Normal Inspection #1 Interpretation EKG Date: 03/17/21 Rhythm: NSR Rate (Beats/Min): 67 [place]: Normal P-Wave: Present Comparison: No Change - Patient Data Lab Results Last 24 hrs: Laboratory Results - last 24 hr 03/17/21 03/17/21 03/17/21 Range/Units 06:15 06:15 06:15 WBC 6.2 (3.0-10.3) x10-3/uL RBC 4.28 (3.60-5.20) x10(6)uL Hgb 13.1 (11.4-15.5) g/dL Hct 39.3 (34.2-48.2) % MCV 91.8 (76.7-100.5) fL MCH 30.5 (23.9-33.9) pg MCHC 33.3 (31.9-34.8) g/dL RDW 13.2 (12.3-16.5) % Plt Count 195 (151-488) x10(3)uL MPV 6.9 L (7.1-12.4) fL Neut % (Auto) 46.6 (30.8-76.2) % Lymph % (Auto) 38.5 (18.4-52.1) % [place] % (Auto) 11.8 (4.4-15.7) % Eos % (Auto) 2.4 (0.6-8.1) % Baso % (Auto) 0.7 (0.2-1.5) % Neut # (Auto) 2.9 (1.5-6.3) x10-3/uL Lymph # (Auto) 2.4 (1.0-4.4) x10-3/uL [place] # (Auto) 0.7 (0.3-1.0) x10-3/uL Eos # (Auto) 0.1 (0.0-0.8) x10-3/uL Baso # (Auto) 0.0 (0.0-0.1) x10-3/uL Sodium 143 (135-145) mmol/L Potassium 3.9 (3.5-5.3) mmol/L Chloride 110 (100-110) mmol/L Carbon Dioxide 23 (21-32) mmol/L BUN 16 (7-18) mg/dL Creatinine 0.8 (0.55-1.02) mg/dL Est Cr Clr Drug Dosing 42.88 mL/min Estimated GFR (MDRD) > 60 (>60) BUN/Creatinine Ratio 20.0 (9-20) Glucose 99 (80-116) mg/dL Calcium 8.7 (8.6-10.2) mg/dL Troponin I 112.1 H* (4.0-60.3) pg/mL Result Diagrams: 03/17/21 06:15 03/17/21 06:15 Sepsis Event Note - Evaluation Sepsis Screening Result: No Definite Risk - Focused Exam Vital Signs: Vital Signs Temp Pulse Resp BP BP Pulse Ox 03/17/21 08:10 97.6 F 68 16 119/68 95 03/16/21 23:15 97.4 F 86 20 129/63 95 - Problem List & Annotations (1) Weakness SNOMED Code(s): 75330134 Code(s): R53.1 - WEAKNESS Status: Acute Current Visit: Yes (2) Mild intermittent asthma SNOMED Code(s): 564341629 Code(s): J45.20 - MILD INTERMITTENT ASTHMA, UNCOMPLICATED Status: Acute Current Visit: Yes Qualifiers: Asthma complication type: uncomplicated Qualified Code(s): J45.20 - Mild intermittent asthma, uncomplicated (3) Elevated troponin I level SNOMED Code(s): 655105943 Code(s): R77.8 - OTHER SPECIFIED ABNORMALITIES OF PLASMA PROTEINS Status: Acute Current Visit: Yes (4) Ulcerative colitis SNOMED Code(s): 97091310 Code(s): K51.90 - ULCERATIVE COLITIS, UNSPECIFIED, WITHOUT COMPLICATIONS Status: Acute Current Visit: Yes Qualifiers: Digestive disease complication type: unspecified complication (5) Ileostomy status SNOMED Code(s): 656147987, 439771054, 072656540 Code(s): Z93.2 - ILEOSTOMY STATUS Status: Acute Current Visit: Yes (6) Hypokalemia SNOMED Code(s): 41662471 Code(s): E87.6 - HYPOKALEMIA Status: Acute Current Visit: Yes (7) Atypical chest pain SNOMED Code(s): 122966878 Code(s): R07.89 - OTHER CHEST PAIN Status: Acute Current Visit: Yes - Problem List Review Problem List Initiated/Reviewed/Updated: Yes - My Orders Last 24 Hours: My Active Orders 03/16/21 09:58 Vital Signs [RC] PER UNIT ROUTINE - Plan Plan:: EKG was normal. Troponin is less than it was when she came in. I think the symptoms are noncardiac, I will discharge her home today with home health. She is sometimes forgetful, and may need a higher level of care than when she is at the distal end. I spoke to the daughter,Sissy
== END 2021-03-17 11:30 | disposition home health service (06) ==
LOC: FB.ED 11:13 → FB.MS 14:59
PROVIDERS: ADMIT Family Medicine; ATTEND Family Medicine
DX: R53.1 Weakness (principal); K94.13 Enterostomy malfunction; M81.0 Age-related osteoporosis without current pathological fracture; J45.20 Mild intermittent asthma, uncomplicated; R77.8 Other specified abnormalities of plasma proteins; K51.90 Ulcerative colitis, unspecified, without complications; Z20.822 Contact with and (suspected) exposure to COVID-19; Z88.0 Allergy status to penicillin; Z91.040 Latex allergy status; Z88.8 Allergy status to other drugs, medicaments and biological substances; Z91.018 Allergy to other foods; Z88.2 Allergy status to sulfonamides; Z79.899 Other long term (current) drug therapy; Z90.49 Acquired absence of other specified parts of digestive tract; Z98.890 Other specified postprocedural states
CPT/HCPCS: 36415; 71045; 80048; 80053; 81001; 82270; 83880; 84484; 85025; 93005; 96372; 97161; 99285; A9270; G0378; J1650; J7030; U0002

== ENCOUNTER 2021-08-26 13:48 | Emergency (ER) | payer BC, MEDICARE ==
[2021-08-26] MEDS ORDERED: Albuterol/Ipratropium 3.0-0.5 MG/3 ML Neb Soln NEB STA (14:35)
[2021-08-26] MEDS ORDERED: Morphine 2 MG/ML SYRINGE IVPUSH STA ×2 (14:35→17:48)
[2021-08-26] MEDS ORDERED: methylPREDNISolone Sodium Succinate 125 MG/2 ML SDV IVPUSH STA (14:35)
[2021-08-26] MEDS ORDERED: Iopamidol 755 Mg/ML 75 ML Bottle IV ONE (15:16)
[2021-08-26] MEDS ORDERED: Heparin Sodium 5,000 Units/ML Vial IVPUSH ONE ×2 (16:47→17:00)
[2021-08-26] MEDS ORDERED: Heparin Sodium/0.45% NaCl 500 ML IV SCH (17:00)
[2021-08-26] MEDS ORDERED: Heparin Sodium/0.45% NaCl 25,000 UNITS/500 ML BAG IV SCH (17:00)
[2021-08-26] MEDS ORDERED: Nitroglycerin 0.4 MG Tab.SL SL STA (17:06)
[2021-08-26] MEDS ORDERED: LORazepam 2 MG/ML SDV IVPUSH STA (17:35)
== END 2021-08-26 21:40 ==
LOC: FB.ED 13:48
DX: I21.4 Non-ST elevation (NSTEMI) myocardial infarction (principal); K51.90 Ulcerative colitis, unspecified, without complications; J45.909 Unspecified asthma, uncomplicated; Z88.0 Allergy status to penicillin; Z88.1 Allergy status to other antibiotic agents; Z91.040 Latex allergy status; Z88.8 Allergy status to other drugs, medicaments and biological substances; Z88.2 Allergy status to sulfonamides; Z88.5 Allergy status to narcotic agent; Z20.822 Contact with and (suspected) exposure to COVID-19
CPT/HCPCS: 36415; 71045; 71275; 80053; 83880; 84484; 85025; 85379; 85610; 85730; 93005; 94640; 96365; 96366; 96375; 96376; 99285; A9270; J1644; J2060; J2270; J2930; Q9967; U0002; 93010; J7620

== ENCOUNTER 2021-11-12 15:50 | Observation (INO) | payer MEDICARE ==
[2021-11-12] MEDS ORDERED: Morphine 2 MG/ML SYRINGE IVPUSH ONE ×2 (16:39→19:57)
[2021-11-12] MEDS ORDERED: Ondansetron 4 MG/2 ML SDV IVPUSH ONE (16:39)
[2021-11-12] MEDS ORDERED: Sodium Chloride 0.9% 10 ML Syringe FLUSH PRN (16:39)
[2021-11-12] MEDS: Sodium Chloride 0.9% 1,000 ML IV SCH (17:05)
[2021-11-12 17:23] LABS: ESTIMATED GFR 73 mL/min (>60)
[2021-11-12] MEDS ORDERED: Iopamidol 755 Mg/ML 75 ML Bottle IV ONE ×2 (17:42→17:47)
[2021-11-12] MEDS ORDERED: Morphine 4 MG/ML VIAL IVPUSH ONE (17:48)
[2021-11-12] MEDS ORDERED: Acetaminophen 325 MG Tab PO PRN (20:30)
[2021-11-12] MEDS ORDERED: Ondansetron 4 MG/2 ML SDV IV PRN (20:30)
[2021-11-12] MEDS ORDERED: Morphine 2 MG/ML SYRINGE IVPUSH PRN (20:30)
[2021-11-12] MEDS ORDERED: diphenhydrAMINE 50 MG/ML SDV IVPUSH ONE (21:25)
[2021-11-12] MEDS ORDERED: diphenhydrAMINE 50 MG/ML SDV ONE (21:26)
[2021-11-12] MEDS: traMADol 50 MG Tab PO PRN (21:30)
[2021-11-12] MEDS ORDERED: HYDROmorphone 2 MG/ML SDV IVPUSH PRN (21:31)
[2021-11-12] MEDS ORDERED: diphenhydrAMINE 50 MG/ML SDV IVPUSH PRN (21:31)
[2021-11-13] MEDS: Sodium Chloride 0.9% 1,000 ML IV SCH (04:44)
[2021-11-13] MEDS: traMADol 50 MG Tab PO PRN (04:52)
[2021-11-13 06:41] LABS: ESTIMATED GFR 86 mL/min (>60)
[2021-11-13] MEDS ORDERED: Acetaminophen/HYDROcodone 325-5 MG Tab PO ONE (09:43)
== END 2021-11-13 10:49 | disposition home or self-care (01) ==
LOC: FB.ED 15:50 → FB.MS 20:33
PROVIDERS: ADMIT Family Medicine; ATTEND Family Medicine
DX: S22.41XA Multiple fractures of ribs, right side, initial encounter for closed fracture (principal); S09.90XA Unspecified injury of head, initial encounter; I25.10 Atherosclerotic heart disease of native coronary artery without angina pectoris; J45.20 Mild intermittent asthma, uncomplicated; M19.90 Unspecified osteoarthritis, unspecified site; M81.0 Age-related osteoporosis without current pathological fracture; H40.9 Unspecified glaucoma; N39.0 Urinary tract infection, site not specified; K63.89 Other specified diseases of intestine; G43.909 Migraine, unspecified, not intractable, without status migrainosus; Z88.6 Allergy status to analgesic agent; Z88.0 Allergy status to penicillin; Z88.8 Allergy status to other drugs, medicaments and biological substances; Z88.1 Allergy status to other antibiotic agents; Z91.040 Latex allergy status; Z88.2 Allergy status to sulfonamides; Z98.890 Other specified postprocedural states; Z79.899 Other long term (current) drug therapy; Z79.51 Long term (current) use of inhaled steroids; Z79.52 Long term (current) use of systemic steroids; Z90.49 Acquired absence of other specified parts of digestive tract; Z98.1 Arthrodesis status; W19.XXXA Unspecified fall, initial encounter
CPT/HCPCS: 36415; 70450; 71260; 72125; 74177; 80048; 80053; 81001; 83735; 85025; 94762; 96374; 96375; 96376; 99285; A9270; G0378; J1200; J2270; J2405; J3490; J7030; Q9967

== ENCOUNTER 2022-06-19 18:42 | Emergency (ER) | payer MEDICARE ==
[2022-06-19] MEDS ORDERED: HYDROmorphone 2 MG/ML SDV ONE (18:56)
[2022-06-19] MEDS ORDERED: HYDROmorphone 2 MG/ML SDV IM ONE ×2 (18:57→20:03)
[2022-06-19] MEDS ORDERED: Mineral Oil 133 ML BOTTLE RECTAL ONE (20:00)
[2022-06-19] MEDS ORDERED: Ondansetron 4 MG Tab.DIS ONE (20:08)
[2022-06-19] MEDS ORDERED: Ondansetron 4 MG Tab.DIS PO ONE (20:15)
[2022-06-19] MEDS ORDERED: Lactulose Soln 10 GM/15 ML 15 ML UD Cup PO ONE (21:21)
[2022-06-19] MEDS ORDERED: Acetaminophen/HYDROcodone 325-5 MG Tab PO ONE (21:38)
== END 2022-06-19 21:53 | disposition home or self-care (01) ==
LOC: FB.ED 18:42
DX: K59.00 Constipation, unspecified (principal); I25.10 Atherosclerotic heart disease of native coronary artery without angina pectoris; J45.909 Unspecified asthma, uncomplicated; M19.90 Unspecified osteoarthritis, unspecified site; Z88.0 Allergy status to penicillin; Z88.8 Allergy status to other drugs, medicaments and biological substances; Z88.1 Allergy status to other antibiotic agents; Z88.6 Allergy status to analgesic agent; Z88.5 Allergy status to narcotic agent; Z91.040 Latex allergy status; Z88.2 Allergy status to sulfonamides; Z91.018 Allergy to other foods; Z79.899 Other long term (current) drug therapy
CPT/HCPCS: 96372; 99283; A9270-GY; J1170; Q0162

== ENCOUNTER 2022-12-22 11:17 | Emergency (ER) | payer MEDICARE ==
[2022-12-22] MEDS ORDERED: methylPREDNISolone Sodium Succinate 125 MG/2 ML SDV IM ONE (11:41)
[2022-12-22] MEDS ORDERED: Albuterol/Ipratropium 3.0-0.5 MG/3 ML Neb Soln NEB ONE (11:41)
[2022-12-22 12:08] LABS: BASOPHILS PERCENT AUTO 0.2 % (0.2-1.5); BLOOD UREA NITROGEN,BUN 12 mg/dL (7-18); CALCIUM 8.8 mg/dL (8.6-10.2); CARBON DIOXIDE,CO2 28 mmol/L (21-32); CHLORIDE,CL 105 mmol/L (100-110); CREATININE 0.8 mg/dL (0.55-1.02); EOSINOPHILS ABSOLUTE AUTO 0.1 x10-3/uL (0.0-0.8); EOSINOPHILS PERCENT AUTO 2.1 % (0.6-8.1); EST CRCL DRUG DOSING (CG) 42.35 mL/min; ESTIMATED GFR 73 mL/min (>60); GLUCOSE RANDOM 92 mg/dL (80-116); HEMATOCRIT 40.1 % (34.2-48.2); HEMOGLOBIN 13.5 g/dL (11.4-15.5); LYMPHOCYTES ABSOLUTE AUTO 1.3 x10-3/uL (1.0-4.4); LYMPHOCYTES PERCENT AUTO 26.3 % (18.4-52.1); MEAN CORPUSCULAR HEMOGLOBIN 30.8 pg (23.9-33.9); MEAN CORPUSCULAR HGB CONC 33.6 g/dL (31.9-34.8); MEAN CORPUSCULAR VOLUME 91.7 fL (76.7-100.5); MEAN PLATELET VOLUME 6.7 fL (7.1-12.4); MONOCYTES ABSOLUTE AUTO 0.5 x10-3/uL (0.3-1.0); MONOCYTES PERCENT AUTO 9.5 % (4.4-15.7); NEUTROPHILS ABSOLUTE AUTO 3.1 x10-3/uL (1.5-6.3); NEUTROPHILS PERCENT AUTO 61.9 % (30.8-76.2); PLATELET COUNT,PLT 168 x10(3)uL (151-488); POTASSIUM,K 4.2 mmol/L (3.5-5.3); RED BLOOD CELL COUNT 4.38 x10(6)uL (3.60-5.20); RED CELL DISTRIBUTION WIDTH 13.4 % (12.3-16.5); SODIUM,NA 138 mmol/L (135-145)
[2022-12-22 12:15] LABS: A/G RATIO 1.2; ALANINE AMINOTRANSFERASE,ALT 26 U/L (12-36); ALBUMIN 3.8 g/dL (3.2-4.6); ALKALINE PHOSPHATASE 65 IU/L (56-112); ASPARTATE AMNIOTRANSFERASE,AST 24 IU/L (5-25); BILIRUBIN TOTAL 0.5 mg/dL (0.1-1.3); PROTEIN TOTAL,TP 6.9 g/dL (6.0-8.0)
[2022-12-22 12:20] LABS: TROPONIN I 42.5 pg/mL (4.0-60.3)
[2022-12-22] MEDS ORDERED: Lidocaine 4% 1 each Patch TOP STA (12:23)
[2022-12-22] MEDS ORDERED: Acetaminophen 500 MG Tab PO ONE (12:23)
[2022-12-22] MEDS ORDERED: traMADol 50 MG Tab PO ONE (12:35)
[2022-12-22] MEDS ORDERED: LORazepam 1 MG Tab PO ONE (12:35)
[2022-12-22 12:36] LABS: D-DIMER QUANTITATIVE 0.8 mg/LFEU (0.0-0.59)
[2022-12-22 12:41] LABS: INR 1.02 (1.00-1.24); PROTHROMBIN TIME 10.5 sec (9.0-11.1); PTT,PARTIAL THROMBOPLSTIN TIME 26.9 SECONDS (24.4-33.2)
[2022-12-22] MEDS ORDERED: Sodium Chloride 0.9% 10 ML Syringe FLUSH PRN (13:01)
[2022-12-22] MEDS ORDERED: Iopamidol 755 Mg/ML 100 ML Bottle IV SCH (13:45)
[2022-12-22] MEDS ORDERED: Sodium Chloride 0.9% 1,000 ML IV SCH (14:45)
== END 2022-12-22 16:35 | disposition home or self-care (01) ==
LOC: FB.ED 11:17
DX: J45.909 Unspecified asthma, uncomplicated (principal); R09.1 Pleurisy; I25.10 Atherosclerotic heart disease of native coronary artery without angina pectoris; Z88.0 Allergy status to penicillin; Z88.6 Allergy status to analgesic agent; Z88.1 Allergy status to other antibiotic agents; Z88.8 Allergy status to other drugs, medicaments and biological substances; Z88.2 Allergy status to sulfonamides; Z91.018 Allergy to other foods; Z88.5 Allergy status to narcotic agent; Z79.899 Other long term (current) drug therapy
CPT/HCPCS: 36415; 71045; 71275; 80053; 83880; 84484; 85025; 85379; 85610; 85730; 93005; 94640; 96372; 99285-25; A9270-GY; J2930; J7030; J7620; Q9967